=== PATIENT | male | born 1950 | race Caucasian/White ===

== ENCOUNTER 2017-07-21 08:04 | Day surgery (SDC) | payer MEDICARE ==
[2017-07-20 16:07] LABS: BASOPHILS % (AUTO) 0.3 % (0-1); EOSINOPHILS # (AUTO) 0.1 X10'3 (0-0.9); EOSINOPHILS % (AUTO) 1.4 % (0-6); LYMPHOCYTES # (AUTO) 1.6 X10'3 (1.1-4.8); LYMPHOCYTES % (AUTO) 32.8 % (21-51); MEAN CORPUSCULAR HEMOGLOBIN 32.9 PG (27.0-31.0); MEAN CORPUSCULAR HGB CONC 33.7 % (33.0-36.5); MEAN CORPUSCULAR VOLUME 97.6 FL (78-98); MEAN PLATELET VOLUME 6.6 FL (7.4-10.4); MONOCYTES # (AUTO) 0.5 X10'3 (0-0.9); MONOCYTES % (AUTO) 9.6 % (2-12); NEUTROPHILS # (AUTO) 2.8 X10'3 (1.8-7.7); NEUTROPHILS % (AUTO) 55.9 % (42-75); PRE OP HEMOGLOBIN 13.1 g/dL (14.0-17.9); PRE OP PLATELET COUNT 188 X10'3 (140-440); RED CELL DISTRIBUTION WIDTH 15.8 % (11.5-14.5)
[2017-07-20 16:22] LABS: PRE OP PROTIME 20.9 SECONDS (9.0-12.0)
[2017-07-20 16:24] LABS: PRE OP INR 2.1 INR
[2017-07-20 16:31] LABS: ALBUMIN 3.8 G/DL (3.4-5.0); ALBUMIN/GLOBULIN RATIO 1.1 (1.1-1.5); ALKALINE PHOSPHATASE 28 IU/L (46-116); BLOOD UREA NITROGEN 22 MG/DL (7-18); BUN/CREATININE RATIO 12.4 (5.4-32.0); CALCIUM 8.7 MG/DL (8.5-10.1); CHLORIDE 108 MMOL/L (99-107); CREATININE 1.77 MG/DL (0.60-1.10); PRE OP ALT 37 U/L (30-65); PRE OP ANION GAP 6 (8-16); PRE OP AST 22 U/L (10-37); PRE OP BILIRUB, TOTAL 0.9 MG/DL (0.0-1.0); PRE OP GLUCOSE 97 MG/DL (70-104); PRE OP POTASSIUM 4.3 MMOL/L (3.4-5.1); PRE OP SODIUM 143 MMOL/L (135-145); TOTAL CARBON DIOXIDE 28.7 MMOL/L (24-32); TOTAL PROTEIN 7.3 G/DL (6.4-8.2); eGFR 38 ML/MIN
[~2017-07-21] VITALS: Ht 190.5 cm; Wt 136.0 kg
[~2017-07-21 08:04] MED LIST: ALB0.5UD NEB; ATOR40TA71 PO; BUPIVAcaine/PF 2.5 mg/ml (0.25%) 30ml vial ONE; CARV-49 PO; CEFAZOLIN IV ONE; DOCUMENT DATE & TIME OF BETA-BLOCKER PO ONE; DULO30CA51 PO; ERGO500014 PO; FERR325T28 PO; GABA-532 PO; LACT1CAP65 PO; MULT-269 PO; POTA-82 PO; PSYL1CAP3 PO; SODIUM CHLORIDE IV ONE; TIOT4MIS3 INH; WARF5TAB7 PO; ZOLP10TA5 PO; albuterol 2.5 MG/3 ML nebule NEB ONE; famotidine 20mg tablet PO ONE; ringers solution, lacted 1,000 ML IV SCH
[2017-07-21 08:45] VITALS: BP 144/76
[2017-07-21] MEDS ORDERED: LIDOcaine 0.5% (5mg/ml) 50ml vial ONE (10:31)
[2017-07-21] MEDS ORDERED: fentaNYL/PF 50MCG/1 ML 2ML syringe ONE (10:39)
[2017-07-21] MEDS ORDERED: midazolam 2 mg/2 ml injection ONE (10:39)
[2017-07-21] MEDS ORDERED: propofol inj 20 ML IV ONE (10:48)
[2017-07-21] MEDS ORDERED: ringers solution, lacted 1,000 ML IV SCH (11:00)
[2017-07-21] MEDS ORDERED: meperidine/PF 25mg/ml syringe IV PRN ×3 (11:00)
[2017-07-21] MEDS ORDERED: ondansetron/PF 4mg/2ml inj IV PRN (11:00)
[2017-07-21] MEDS ORDERED: proCHLORperazine 10 MG/2 ml inj IV PRN (11:00)
[2017-07-21 11:10] VITALS: BP_SYST 132; BP_SYST 144; BP_DIAS 70; BP_DIAS 76
[2017-07-21 11:20] VITALS: BP 131/71
[2017-07-21 11:30] VITALS: BP 140/73
[2017-07-21 11:40] VITALS: BP 137/71
[2017-07-21 11:50] VITALS: BP 139/74
== END 2017-07-21 11:50 | disposition home or self-care (01) ==
LOC: PAS 08:04
PROVIDERS: ATTEND Orthopaedic Surgery Hand Surgery
DX: G56.01 Carpal tunnel syndrome, right upper limb (principal); M17.11 Unilateral primary osteoarthritis, right knee; I13.0 Hypertensive heart and chronic kidney disease with heart failure and stage 1 through stage 4 chronic kidney disease, or unspecified chronic kidney disease; I12.9 Hypertensive chronic kidney disease with stage 1 through stage 4 chronic kidney disease, or unspecified chronic kidney disease; I50.22 Chronic systolic (congestive) heart failure; G47.33 Obstructive sleep apnea (adult) (pediatric); I48.2 Chronic atrial fibrillation; E66.9 Obesity, unspecified; J44.9 Chronic obstructive pulmonary disease, unspecified; F32.9 Major depressive disorder, single episode, unspecified; Z68.36 Body mass index [BMI] 36.0-36.9, adult; Z90.49 Acquired absence of other specified parts of digestive tract; Z79.01 Long term (current) use of anticoagulants; Z85.038 Personal history of other malignant neoplasm of large intestine; Z79.899 Other long term (current) drug therapy; Z98.890 Other specified postprocedural states; Z86.73 Personal history of transient ischemic attack (TIA), and cerebral infarction without residual deficits; Z87.891 Personal history of nicotine dependence; Z72.89 Other problems related to lifestyle
CPT/HCPCS: 29848; 36415; 71046; 80053; 85025; 85610; 85730; A6449; J0690; J2001; J2250; J2704; J3010; J3490; J7120; A7000

== ENCOUNTER → 2018-10-26 | Emergency (ER) | payer MEDICARE ==
[~2018-10-26] VITALS: Ht 190.5 cm; Wt 133.0 kg
[~2018-10-26] MED LIST changes: -BUPIVAcaine/PF 2.5 mg/ml (0.25%) 30ml vial ONE; -CEFAZOLIN IV ONE; +CEPH500C5 PO; -DOCUMENT DATE & TIME OF BETA-BLOCKER PO ONE; +HYDR-3965 PO; +HYDROcodone/acetaminophen 5mg/325mg tablet PO ONE; -PSYL1CAP3 PO; -SODIUM CHLORIDE IV ONE; +TETanus/Pertussis (Acell)/Diphther VAC/PF (Tdap-Adult) 0.5ml syringe IM ONE; +WARF-55 PO; -WARF5TAB7 PO; -albuterol 2.5 MG/3 ML nebule NEB ONE; -famotidine 20mg tablet PO ONE; +ketorolac trometh inj. 60 MG/2 ML VIAL IM ONE; +neomy sulf/bacitrac zn/polymixin b oint 14.2 gm tube TP ONE; -ringers solution, lacted 1,000 ML IV SCH
[2018-10-26 11:56] VITALS: BP 122/80
== END | disposition home or self-care (01) ==
LOC: ER 11:46
DX: T23.251A Burn of second degree of right palm, initial encounter (principal); I48.91 Unspecified atrial fibrillation; I11.0 Hypertensive heart disease with heart failure; I50.9 Heart failure, unspecified; Z86.73 Personal history of transient ischemic attack (TIA), and cerebral infarction without residual deficits; Z85.038 Personal history of other malignant neoplasm of large intestine; Z98.890 Other specified postprocedural states; Z79.899 Other long term (current) drug therapy; Z79.01 Long term (current) use of anticoagulants; X15.0XXA Contact with hot stove (kitchen), initial encounter; Y93.89 Activity, other specified; Y92.098 Other place in other non-institutional residence as the place of occurrence of the external cause; Y99.9 Unspecified external cause status
CPT/HCPCS: 16020; 90471; 90715; 96372; 99284; J1885

== ENCOUNTER 2018-12-12 04:38 | Inpatient (IN) | payer MEDICARE ==
[~2018-12-12] VITALS: Ht 185.4 cm; Wt 146.1 kg
[~2018-12-12 04:38] MED LIST changes: -ALB0.5UD NEB; +ALBU18HF2 IH; +ASPI-1071 PO; +BUDE180A INH; +CEFD300C3 PO; -CEPH500C5 PO; +COU5T PO; +FURO-150 PO; -HYDR-3965 PO; -HYDROcodone/acetaminophen 5mg/325mg tablet PO ONE; -TETanus/Pertussis (Acell)/Diphther VAC/PF (Tdap-Adult) 0.5ml syringe IM ONE; -WARF-55 PO; -ketorolac trometh inj. 60 MG/2 ML VIAL IM ONE; -neomy sulf/bacitrac zn/polymixin b oint 14.2 gm tube TP ONE
[2018-12-12 05:12] LABS: BASOPHILS # (AUTO) 0.1 X10'3 (0-0.2); BASOPHILS % (AUTO) 0.9 % (0-1); EOSINOPHILS # (AUTO) 0.2 X10'3 (0-0.9); HEMATOCRIT 38.7 % (42.0-52.0); HEMOGLOBIN 12.5 g/dl (14.0-17.9); LYMPHOCYTES # (AUTO) 0.7 X10'3 (1.1-4.8); LYMPHOCYTES % (AUTO) 10.1 % (21-51); MEAN CORPUSCULAR HEMOGLOBIN 29.5 PG (27.0-31.0); MEAN CORPUSCULAR HGB CONC 32.2 g/dL (33.0-36.5); MEAN CORPUSCULAR VOLUME 91.5 FL (78-98); MEAN PLATELET VOLUME 8.5 FL (7.4-10.4); MONOCYTES # (AUTO) 0.5 X10'3 (0-0.9); MONOCYTES % (AUTO) 7.4 % (2-12); NEUTROPHILS # (AUTO) 5.7 X10'3 (1.8-7.7); NEUTROPHILS % (AUTO) 78.6 % (42-75); PLATELET COUNT 186 X10'3 (140-440); RED BLOOD COUNT 4.23 X10'6 (4.70-6.10); RED CELL DISTRIBUTION WIDTH 17.5 % (11.5-14.5); WHITE BLOOD COUNT 7.3 X10'3 (4.5-11.0)
[2018-12-12 05:35] LABS: ALANINE AMINOTRANSFERASE 103 U/L (12-78); ALBUMIN 3.1 G/DL (3.4-5.0); ALBUMIN/GLOBULIN RATIO 0.8 (1.1-1.5); ALKALINE PHOSPHATASE 91 IU/L (46-116); ANION GAP 9 (8-16); ASPARTATE AMINO TRANSFERASE 77 U/L (10-37); BLOOD UREA NITROGEN 36 MG/DL (7-18); BUN/CREATININE RATIO 17.7 (5.4-32.0); CALCIUM 8.3 MG/DL (8.5-10.1); CHLORIDE 103 MMOL/L (99-107); CREATININE 2.03 MG/DL (0.60-1.10); GLUCOSE 113 MG/DL (70-104); POTASSIUM 4.3 MMOL/L (3.5-5.1); SODIUM 137 MMOL/L (135-145); TOTAL CARBON DIOXIDE 24.6 MMOL/L (24-32); TOTAL PROTEIN 6.9 G/DL (6.4-8.2); eGFR 33 ML/MIN
--- NOTE | 2018-12-12 05:36 | NUR ---
Patient sleeping comfortably with nasal cannula attatched to forehead. SPo2 re-attached to finger and nasal cannula placed back in nose.
[2018-12-12 05:41] LABS: MAGNESIUM 2.1 MG/DL (1.5-2.4)
[2018-12-12] MEDS ORDERED: ondansetron/PF 4mg/2ml inj IV PRN (08:05)
[2018-12-12] MEDS ORDERED: potassium Cl 40MEQ/NS 500ml 500 ML IV PRN (08:05)
[2018-12-12] MEDS ORDERED: potassium CL 10mEq/100ml bag 100 ML IV PRN (08:05)
[2018-12-12] MEDS ORDERED: mag hydrox/Alum hydrox/simeth 30ml oral suspension PO PRN (08:05)
[2018-12-12] MEDS ORDERED: magnesium Cl slow-release 64mg tablet PO PRN (08:05)
[2018-12-12] MEDS ORDERED: potassium Cl 20 mEq SR tablet PO PRN ×2 (08:05)
[2018-12-12] MEDS ORDERED: magnesium 4gm in 100ml NS 100 ML IV PRN (08:05)
[2018-12-12] MEDS ORDERED: magnesium 2GM in 50ml NS 50 ML IV PRN (08:05)
[2018-12-12] MEDS ORDERED: magnesium hydroxide 30ml (MOM) UD suspension PO PRN (08:05)
[2018-12-12] MEDS ORDERED: acetaminophen 325mg tablet PO PRN ×2 (08:05)
[2018-12-12] MEDS: cefpodoxime proxetil 100mg tablet PO SCH ×2 (09:55→17:34)
[2018-12-12 10:15] VITALS: BP 127/47
[2018-12-12 11:01] VITALS: BP 118/60
--- NOTE | 2018-12-12 12:00 | NUR ---
Paged Dr Hopkins to confirm if he wants this patient to have fluids running despite elevated pbnp.
[2018-12-12 13:45] LABS: CHOL/HDL RATIO 3.4 (0.00-4.99); CHOLESTEROL 78 MG/DL (0-200); HDL CHOLESTEROL 23 MG/DL (35-60); LDL CHOLESTEROL 47 MG/DL (50-100); TRIGLYCERIDES 81 MG/DL (20-135)
[2018-12-12 15:00] VITALS: BP 134/83
--- NOTE | 2018-12-12 15:00 | NUR ---
Paged Sandeep again to confirm if he wants fluids running.
--- NOTE | 2018-12-12 17:15 | NUR ---
Confirmed with Dr Castorena that he does want fluids to continue at rate of 80/hr.
[2018-12-12] MEDS: normal saline 1000ml 1,000 ML IV SCH ×2 (17:30→20:31)
[2018-12-12 18:00] VITALS: BP 133/77
--- NOTE | 2018-12-12 18:00 | NUR ---
Patient in room MED 310. I have received report from JACQUE Navarrete and had the opportunity to ask questions and assume patient care.
--- NOTE | 2018-12-12 18:52 | NUR ---
Problems reprioritized. Patient report given, questions answered & plan of care reviewed with Miri SANTILLAN.
[2018-12-12] MEDS: HYDROcodone/acetaminophen 5mg/325mg tablet PO PRN (19:32)
[2018-12-12] MEDS: carvedilol 6.25mg tablet PO SCH (19:34)
[2018-12-12] MEDS: lactobacillus rhamnosus 10,000 MMU CELLS/CAPSULE PO SCH (19:34)
[2018-12-12 20:00] LABS: ABG BASE EXCESS 0.4 mmol/L (-2.0-3.0); ABG HCO3 24.7 mmol/L (22.0-26.0); ABG PCO2 (T) 37.5 mmHg (35.0-48.0); ABG PH (T) 7.433 (7.350-7.450); ABG PO2 (T) 67.8 mmHg (83-108); FMetHb 0.1 % (0.3-1.12); PATIENT TEMPERATURE 36.3
[2018-12-12] MEDS ORDERED: gabapentin 300mg capsule PO SCH (20:00)
[2018-12-12] MEDS: budesonide 0.5mg/2ml UD nebule IH SCH (20:06)
[2018-12-12] MEDS ORDERED: non-formulary drug (Zolpidem Tartrate* (Ambien*) 1 TABLET) PO SCH (21:00)
[2018-12-12] MEDS: atorvastatin 20mg tablet PO SCH (21:02)
[2018-12-12] MEDS: temazepam 15mg capsule PO PRN (21:02)
[2018-12-12] MEDS: warfarin 5mg tablet PO SCH (21:03)
[2018-12-12 22:00] VITALS: BP 122/99
[2018-12-13] MEDS: normal saline 1000ml 1,000 ML IV SCH ×2 (00:30→09:01)
[2018-12-13] MEDS: HYDROcodone/acetaminophen 5mg/325mg tablet PO PRN ×3 (01:56→15:20)
[2018-12-13 02:00] VITALS: BP 118/61
[2018-12-13 05:27] LABS: HEMATOCRIT 38.9 % (42.0-52.0); HEMOGLOBIN 12.7 g/dl (14.0-17.9); MEAN CORPUSCULAR HGB CONC 32.6 g/dL (33.0-36.5); MEAN PLATELET VOLUME 8.5 FL (7.4-10.4); PLATELET COUNT 168 X10'3 (140-440); RED BLOOD COUNT 4.22 X10'6 (4.70-6.10); RED CELL DISTRIBUTION WIDTH 17.8 % (11.5-14.5); WHITE BLOOD COUNT 6.4 X10'3 (4.5-11.0)
[2018-12-13 05:49] LABS: ANION GAP 4 (8-16); BLOOD UREA NITROGEN 25 MG/DL (7-18); BUN/CREATININE RATIO 14.9 (5.4-32.0); CALCIUM 8.7 MG/DL (8.5-10.1); CHLORIDE 103 MMOL/L (99-107); CREATININE 1.68 MG/DL (0.60-1.10); GLUCOSE 99 MG/DL (70-104); MAGNESIUM 2.2 MG/DL (1.5-2.4); PHOSPHORUS 3.5 MG/DL (2.3-4.5); POTASSIUM 4.4 MMOL/L (3.5-5.1); SODIUM 138 MMOL/L (135-145); TOTAL CARBON DIOXIDE 30.6 MMOL/L (24-32); eGFR 41 ML/MIN
[2018-12-13 06:00] VITALS: BP 135/92
--- NOTE | 2018-12-13 06:10 | NUR ---
Patient in room MED 310. I have received report from JACQUE MORRISON, and had the opportunity to ask questions and assume patient care.
--- NOTE | 2018-12-13 06:27 | NUR ---
Problems reprioritized. Patient report given, questions answered & plan of care reviewed with JACQUE Burnette.
[2018-12-13] MEDS ORDERED: duloxetine 30mg CAPSULE.DR PO SCH (08:00)
[2018-12-13] MEDS: K and/or MAG REPLACEMENT MC SCH (08:00)
[2018-12-13] MEDS: potassium chloride 10mEq ER tablet PO SCH (08:00)
[2018-12-13] MEDS: STIOLTO RESPIMAT PO SCH (08:00)
[2018-12-13] MEDS: budesonide 0.5mg/2ml UD nebule IH SCH ×2 (08:15→19:50)
[2018-12-13] MEDS: gabapentin 300mg capsule PO SCH (08:39)
[2018-12-13] MEDS: cefpodoxime proxetil 100mg tablet PO SCH ×2 (08:39→17:37)
[2018-12-13] MEDS: duloxetine 20mg capsule.DR PO SCH (08:40)
[2018-12-13] MEDS: aspirin 81mg tablet.DR PO SCH (08:40)
[2018-12-13] MEDS: lactobacillus rhamnosus 10,000 MMU CELLS/CAPSULE PO SCH ×2 (08:40→21:21)
[2018-12-13] MEDS: carvedilol 6.25mg tablet PO SCH ×2 (08:40→21:21)
[2018-12-13 10:56] VITALS: BP 117/70
--- NOTE | 2018-12-13 11:00 | NUR ---
PATIENT AMBULATED ON ROOM AIR MAINTAINED SPO2 >90% FOR THE ENTIRE WALK. PATIENT DENIES SHORTNESS OF BREATH, NO SYMPTOMS NOTED. TOLERATED WELL.
[2018-12-13 11:36] LABS: D-DIMER 1.68 MG/L FEU (0-0.50)
--- NOTE | 2018-12-13 13:00 | NUR ---
PATIENT SAYS HE HAS NO CPAP AT HOME PAGED DR. BENNETT- "RE; CYNTHIA BUCKNER IN 310. PATIENT SAYS HE DOES NOT HAVE CPAP AT HOME. RADIATION PROTECTION ENGINEER WANTS TO KNOW IF YOU WANT TO REFER HIM FOR SLEEP STUDY AT DISCHARGE? THANK YOU, JG BOBBY [phone]"
[2018-12-13 15:00] VITALS: BP 112/73
[2018-12-13 18:00] VITALS: BP 142/78
--- NOTE | 2018-12-13 18:00 | NUR ---
Patient in room MED 310. I have received report from JACQUE Burnette and had the opportunity to ask questions and assume patient care.
[2018-12-13] MEDS: temazepam 15mg capsule PO PRN (21:22)
[2018-12-13] MEDS: warfarin 5mg tablet PO SCH (21:22)
[2018-12-13] MEDS: atorvastatin 20mg tablet PO SCH (21:22)
[2018-12-13 21:57] LABS: URINE AMPHETAMINE SCREEN NEGATIVE (Neg); URINE BARBITUATE SCREEN NEGATIVE (Neg); URINE BENZODIAZEPINES SCREEN NEGATIVE (Neg); URINE CANNABINOID SCREEN NEGATIVE (Neg); URINE COCAINE SCREEN NEGATIVE (Neg); URINE METHADONE SCREEN NEGATIVE (Neg); URINE OPIATE SCREEN POSITIVE (Neg); URINE PHENCYCLIDINE SCREEN NEGATIVE (Neg)
[2018-12-13 22:00] VITALS: BP 139/80
[2018-12-14] MEDS: temazepam 15mg capsule PO PRN (00:44)
[2018-12-14 02:00] VITALS: BP 110/59
[2018-12-14 04:46] LABS: HEMATOCRIT 39.5 % (42.0-52.0); HEMOGLOBIN 13.1 g/dl (14.0-17.9); MEAN CORPUSCULAR HEMOGLOBIN 30.3 PG (27.0-31.0); MEAN CORPUSCULAR HGB CONC 33.1 g/dL (33.0-36.5); MEAN CORPUSCULAR VOLUME 91.8 FL (78-98); MEAN PLATELET VOLUME 8.2 FL (7.4-10.4); PLATELET COUNT 170 X10'3 (140-440); RED BLOOD COUNT 4.31 X10'6 (4.70-6.10); RED CELL DISTRIBUTION WIDTH 17.5 % (11.5-14.5); WHITE BLOOD COUNT 7.3 X10'3 (4.5-11.0)
[2018-12-14 04:54] LABS: ALBUMIN 3.3 G/DL (3.4-5.0); ANION GAP 3 (8-16); BLOOD UREA NITROGEN 26 MG/DL (7-18); CALCIUM 9.3 MG/DL (8.5-10.1); CHLORIDE 101 MMOL/L (99-107); CREATININE 1.73 MG/DL (0.60-1.10); GLUCOSE 112 MG/DL (70-104); MAGNESIUM 2.2 MG/DL (1.5-2.4); PHOSPHORUS 3.3 MG/DL (2.3-4.5); POTASSIUM 4.7 MMOL/L (3.5-5.1); SODIUM 135 MMOL/L (135-145); TOTAL CARBON DIOXIDE 30.6 MMOL/L (24-32); eGFR 39 ML/MIN
[2018-12-14 06:00] VITALS: BP 112/64
--- NOTE | 2018-12-14 06:30 | NUR ---
Problems reprioritized. Patient report given, questions answered & plan of care reviewed with JACQUE Hernandez.
[2018-12-14] MEDS: budesonide 0.5mg/2ml UD nebule IH SCH (07:45)
[2018-12-14] MEDS: potassium chloride 10mEq ER tablet PO SCH (08:00)
[2018-12-14] MEDS: K and/or MAG REPLACEMENT MC SCH (08:00)
[2018-12-14] MEDS: STIOLTO RESPIMAT PO SCH (08:00)
[2018-12-14] MEDS: lactobacillus rhamnosus 10,000 MMU CELLS/CAPSULE PO SCH (08:03)
[2018-12-14] MEDS: cefpodoxime proxetil 100mg tablet PO SCH (08:03)
[2018-12-14] MEDS: aspirin 81mg tablet.DR PO SCH (08:03)
[2018-12-14] MEDS: gabapentin 300mg capsule PO SCH (08:04)
[2018-12-14] MEDS: duloxetine 20mg capsule.DR PO SCH (08:04)
[2018-12-14] MEDS: carvedilol 6.25mg tablet PO SCH (08:08)
--- NOTE | 2018-12-14 08:12 | NUR ---
pt to V/Q scan
--- NOTE | 2018-12-14 09:47 | NUR ---
PAGER ID: [phone] MESSAGE: [phone]: LUZ ELENA SEGURA scan (-). thank you nurse [phone]
[2018-12-14] MEDS: normal saline 1000ml 1,000 ML IV SCH (10:01)
[2018-12-14] MEDS ORDERED: GABA-532 PO (10:17)
[2018-12-14] MEDS ORDERED: DULO20CA17 PO (10:17)
[2018-12-14] MEDS ORDERED: FURO-150 PO (10:17)
--- NOTE | 2018-12-14 11:45 | NUR ---
discharge education provided; all questions answered. pt removed from cardiac monitoring and IV removed; cannula intact. pt wheeled down with all belongings.
== END 2018-12-14 11:45 | disposition home or self-care (01) | DRG 70 ==
LOC: ER 04:38 → MED 3N 09:26 → CMPBEDREQ 19:22
PROVIDERS: ADMIT Family Medicine; ATTEND Family Medicine
PROC: CB121ZZ Planar Nuclear Medicine Imaging of Lungs and Bronchi using Technetium 99m (Tc-99m) (ICD-10-PCS; principal; 2018-12-14)
DX: G93.41 Metabolic encephalopathy (principal); J96.91 Respiratory failure, unspecified with hypoxia; N17.9 Acute kidney failure, unspecified; I50.22 Chronic systolic (congestive) heart failure; I13.0 Hypertensive heart and chronic kidney disease with heart failure and stage 1 through stage 4 chronic kidney disease, or unspecified chronic kidney disease; I42.9 Cardiomyopathy, unspecified; Z68.41 Body mass index [BMI] 40.0-44.9, adult; J96.11 Chronic respiratory failure with hypoxia; N18.3 Chronic kidney disease, stage 3 (moderate); J44.9 Chronic obstructive pulmonary disease, unspecified; G47.33 Obstructive sleep apnea (adult) (pediatric); E66.9 Obesity, unspecified; F41.9 Anxiety disorder, unspecified; R74.8 Abnormal levels of other serum enzymes; I48.91 Unspecified atrial fibrillation; Z85.038 Personal history of other malignant neoplasm of large intestine; Z86.718 Personal history of other venous thrombosis and embolism; Z86.73 Personal history of transient ischemic attack (TIA), and cerebral infarction without residual deficits; Z87.01 Personal history of pneumonia (recurrent); Z95.0 Presence of cardiac pacemaker; Z95.810 Presence of automatic (implantable) cardiac defibrillator
CPT/HCPCS: 36415; 36600; 70450; 71045; 71250; 78582; 80048; 80053; 80061; 80305; 82140; 82803; 83735; 83880; 84100; 84443; 84484; 85018; 85025; 85027; 85379; 85610; 87070; 93005; 93970; 94640; 94760; 99285; A9539; A9540; G0378; J7030; J7626

== ENCOUNTER 2019-03-04 06:24 | Inpatient (IN) | payer MEDICARE ==
[2019-03-04] VITALS (12 sets, daily range): BP systolic 101–138; BP diastolic 44–83
[~2019-03-04] VITALS: Ht 190.5 cm; Wt 118.4 kg
[~2019-03-04 06:24] MED LIST changes: -CEFD300C3 PO; +DULO20CA18 PO; -DULO30CA51 PO; -LACT1CAP65 PO; -MULT-269 PO
[2019-03-04] MEDS ORDERED: normal saline 1000ML IV soln IVB ONE (06:45)
--- NOTE | 2019-03-04 07:12 | NUR ---
OT AT 2 LPM TO PATIENT, SATS AT 93 BEFORE O2- HOB UP, URINAL PRIVIDED
--- NOTE | 2019-03-04 07:39 | NUR ---
pt with increase work of breathing, o2 per n/c at 2lpm, encouraged pt to nose breathe as breathing via mouth-abdominal breathing noted
[2019-03-04 07:40] LABS: ALANINE AMINOTRANSFERASE 27 U/L (12-78); ALBUMIN 3.7 G/DL (3.4-5.0); ALBUMIN/GLOBULIN RATIO 0.8 (1.1-1.5); ALKALINE PHOSPHATASE 67 IU/L (46-116); ANION GAP 8 (8-16); ASPARTATE AMINO TRANSFERASE 32 U/L (10-37); BILIRUBIN,TOTAL 3.4 MG/DL (0.1-1.0); BLOOD UREA NITROGEN 35 MG/DL (7-18); BUN/CREATININE RATIO 13.8 (5.4-32.0); CALCIUM 9.4 MG/DL (8.5-10.1); CHLORIDE 106 MMOL/L (99-107); CREATININE 2.53 MG/DL (0.60-1.10); ETHANOL < 0.010 GM/DL (0.0-0.010); GLUCOSE 108 MG/DL (70-104); MAGNESIUM 1.8 MG/DL (1.5-2.4); SODIUM 136 MMOL/L (135-145); TOTAL CARBON DIOXIDE 21.6 MMOL/L (24-32); TOTAL PROTEIN 8.2 G/DL (6.4-8.2); eGFR 25 ML/MIN
[2019-03-04] MEDS ORDERED: aspirin 325mg tablet PO ONE (07:40)
[2019-03-04] MEDS ORDERED: calcium gluconate inj. 1 GM in normal saline 100ml IV soln 100 ML IV ONE (07:40)
[2019-03-04 07:43] LABS: POTASSIUM 9.3 MMOL/L (3.5-5.1)
[2019-03-04] MEDS ORDERED: albuterol 2.5 MG/3 ML nebule CONTNEB PRN (07:45)
[2019-03-04] MEDS ORDERED: insulin regular, human 10 units/0.1 ml syringe IV ONE (07:45)
[2019-03-04] MEDS ORDERED: sodium bicarbonate (0.9mEq/ml) 44.6 mEq/50ml syringe IV ONE (07:45)
[2019-03-04] MEDS ORDERED: sodium polystyrene sulfonate 15gm/60ml oral suspension PO ONE ×3 (07:45→20:15)
[2019-03-04] MEDS ORDERED: furosemide 40mg/4ml inj IV ONE (07:45)
[2019-03-04] MEDS ORDERED: dextrose 50%-water 50ml dispensing syringe IV ONE ×5 (07:45→23:35)
[2019-03-04 08:07] LABS: BASOPHILS # (AUTO) 0.1 X10'3 (0-0.2); BASOPHILS % (AUTO) 1.1 % (0-1); EOSINOPHILS % (AUTO) 0.2 % (0-6); HEMATOCRIT 45.8 % (42.0-52.0); HEMOGLOBIN 14.7 g/dl (14.0-17.9); LYMPHOCYTES # (AUTO) 2.3 X10'3 (1.1-4.8); LYMPHOCYTES % (AUTO) 23.8 % (21-51); MEAN CORPUSCULAR HEMOGLOBIN 31.4 PG (27.0-31.0); MEAN CORPUSCULAR VOLUME 98.3 FL (78-98); MEAN PLATELET VOLUME 7.9 FL (7.4-10.4); MONOCYTES # (AUTO) 0.7 X10'3 (0-0.9); MONOCYTES % (AUTO) 7.2 % (2-12); NEUTROPHILS # (AUTO) 6.6 X10'3 (1.8-7.7); NEUTROPHILS % (AUTO) 67.7 % (42-75); PLATELET COUNT 192 X10'3 (140-440); RED BLOOD COUNT 4.66 X10'6 (4.70-6.10); RED CELL DISTRIBUTION WIDTH 21.9 % (11.5-14.5); WHITE BLOOD COUNT 9.7 X10'3 (4.5-11.0)
[2019-03-04 08:15] LABS: ABG BASE EXCESS -14.2 mmol/L (-2.0-3.0); ABG HCO3 15.5 mmol/L (22.0-26.0); ABG OXYGEN SATURATION 93.6 % (95-98); ABG PCO2 (T) 50.7 mmHg (35.0-45.0); ABG PH (T) 7.103 (7.350-7.450); ABG PO2 (T) 92.6 mmHg (83-108); FCOHb 1.5 % (0.5-1.5); FLOW 2 L/min; FMetHb 0.1 % (0.3-1.12); FO2Hb 92.1 % (94-100); TOTAL HEMOGLOBIN 15.1 G/dl (14.0-17.9)
--- NOTE | 2019-03-04 08:22 | NUR ---
AT 7:48 [facility] CALLED WITH CRITICAL OF POTASSIUM 9.1 DR. RIVERA NOTIFYED, 1 GM CALCIUM GLUCONATE ORDERED, CALLED RX STATES 10 MINUTES, CRASHCART PULLED TO ROOM, CALCIUM GLUCONATE GIVE FROM CART. GLUCOSE, INSULIN, ASA AND KAYEXALATE GIVEN STAT, RT IN ROOM TX BEGAN, PT NOT WANTING TREATMENT, DYSPNEA, LABORED BREATHING.
[2019-03-04] MEDS ORDERED: DULO-31 PO (08:59)
[2019-03-04] MEDS ORDERED: GABA-532 PO (08:59)
--- NOTE | 2019-03-04 09:00 | NUR ---
HOME MEDICATIONS UPDATED, PERSONAL BELONGINGS LISTED, DR. RIVERA AT BEDSIDE SPEAKING WITH PATIENT CONCERNING PLAN OF CARE
--- NOTE | 2019-03-04 09:18 | NUR ---
PT REFUSING B-PAP. DR RIVERA AWARE
[2019-03-04 09:21] LABS: ANISOCYTOSIS 3+; PLATELET ESTIMATE NORMAL
[2019-03-04 09:22] LABS: POLYCHROMASIA FEW
[2019-03-04 09:23] LABS: POIKILOCYTOSIS FEW
[2019-03-04] MEDS ORDERED: morphine 4 MG/ML inj SYRINge IV PRN (10:10)
[2019-03-04] MEDS ORDERED: acetaminophen 325mg tablet PO PRN ×2 (10:10)
[2019-03-04] MEDS ORDERED: morphine 2 MG/ML inj. syringe IV PRN (10:10)
[2019-03-04] MEDS ORDERED: albuterol 2.5 MG/3 ML nebule NEB PRN (10:10)
[2019-03-04] MEDS ORDERED: ergocalciferol (Vitamin D) 50,000 unit capsule PO SCH (10:10)
[2019-03-04] MEDS ORDERED: ondansetron/PF 4mg/2ml inj IV PRN (10:10)
[2019-03-04] MEDS: normal saline 1000ml 1,000 ML IV SCH ×2 (10:50→23:27)
[2019-03-04 11:06] LABS: ISTAT ANION GAP 6 (8-12); ISTAT BUN 35 mg/dL (6-19); ISTAT CL 108 mmol/L (99-107); ISTAT CREATININE 2.4 mg/dL (0.8-1.3); ISTAT GLUCOSE 106 mg/dL (70-104); ISTAT HGB 14.6 g/dl (14.0-18.0); ISTAT Hct 43 %PCV (42-52); ISTAT IONIZED CALCIUM 1.23 mmol/L (1.03-1.32); ISTAT NA 135 mmol/L (135-145); ISTAT TOTAL CO2 21 mmol/L (24-32); ISTAT eGFR 27 ML/MIN; POC BUN/CREATININE RATIO 14.6 (5.4-32.0)
[2019-03-04 11:12] LABS: ISTAT K > 8.5 mmol/L (3.5-5.1)
[2019-03-04 11:17] LABS: ALANINE AMINOTRANSFERASE 26 U/L (12-78); ALBUMIN 3.1 G/DL (3.4-5.0); ALBUMIN/GLOBULIN RATIO 0.8 (1.1-1.5); ALKALINE PHOSPHATASE 57 IU/L (46-116); ANION GAP 7 (8-16); ASPARTATE AMINO TRANSFERASE 29 U/L (10-37); BILIRUBIN,TOTAL 3.1 MG/DL (0.1-1.0); BLOOD UREA NITROGEN 33 MG/DL (7-18); BUN/CREATININE RATIO 14.5 (5.4-32.0); CALCIUM 8.8 MG/DL (8.5-10.1); CHLORIDE 109 MMOL/L (99-107); CREATININE 2.28 MG/DL (0.60-1.10); GLUCOSE 102 MG/DL (70-104); SODIUM 136 MMOL/L (135-145); TOTAL CARBON DIOXIDE 20.5 MMOL/L (24-32); TOTAL PROTEIN 6.9 G/DL (6.4-8.2); eGFR 29 ML/MIN
[2019-03-04 11:18] LABS: POTASSIUM 8.5 MMOL/L (3.5-5.1)
--- NOTE | 2019-03-04 11:24 | NUR ---
DR JACKSON NOTIFIED OF ELEVATED K+ 8.5 AND INR 5.3
[2019-03-04] MEDS: budesonide 0.5mg/2ml UD nebule IH SCH ×2 (11:41→20:04)
[2019-03-04] MEDS ORDERED: HYDR-3965 PO (11:53)
[2019-03-04] MEDS ORDERED: calcium chloride 100 MG/1 ML inj IV ONE ×3 (11:55→14:00)
[2019-03-04] MEDS ORDERED: LORazepam 2 mg/ml vial IV PRN (12:00)
--- NOTE | 2019-03-04 12:10 | NUR ---
ekg changes noted on on monitor,pt work of breating increase, diaphoretic, called for ekg, showed to dr. best/kayla, calcium [address] best orderat [address] push spoke to dr garza who ordered bipap, patient consent to bipap, ativan ordered and given, iv fluids decreased to keep open at 15 cc min. vitals, 142/48, pulse at 120, 99 % on bipap at this time.
[2019-03-04 12:15] LABS: CLARITY,URINE CLEAR (Clear); COLOR,URINE YELLOW (Yellow); GLUCOSE, URINE NEGATIVE (Neg); KETONES,URINE NEGATIVE (Neg); LEUKOCYTE ESTERASE ,URINE NEGATIVE (Neg); NITRITES, URINE NEGATIVE (Neg); OCCULT BLOOD,URINE NEGATIVE (Neg); PROTEIN,URINE NEGATIVE (Neg); UROBILINOGEN,URINE 0.2 E.U/dL (0.2-1.0)
[2019-03-04 12:16] LABS: UA COLLECTION TYPE CLN CATCH MIDSTREAM
[2019-03-04 12:17] LABS: TOTAL PROTEIN,URINE RANDOM 26.5 MG/DL
[2019-03-04 12:19] LABS: URINE AMPHETAMINE SCREEN NEGATIVE (Neg); URINE BARBITUATE SCREEN NEGATIVE (Neg); URINE BENZODIAZEPINES SCREEN NEGATIVE (Neg); URINE CANNABINOID SCREEN NEGATIVE (Neg); URINE COCAINE SCREEN NEGATIVE (Neg); URINE METHADONE SCREEN NEGATIVE (Neg); URINE OPIATE SCREEN NEGATIVE (Neg); URINE PHENCYCLIDINE SCREEN NEGATIVE (Neg)
--- NOTE | 2019-03-04 13:00 | NUR ---
[place] catheter place at right groin per Dr Almeida----dialysis nurse here to do hemodialysis B/P 126/70 sats 94%
[2019-03-04 13:24] LABS: UA EOSINOPHILS NO EOS /HPF
[2019-03-04] MEDS ORDERED: heparin 1,000unit/ml 10ml vial 10 ML IV ONE (14:09)
[2019-03-04] MEDS ORDERED: normal saline 1000ml 250 ML IV PRN (14:09)
[2019-03-04] MEDS ORDERED: heparin 1,000 units/ml 10ml inj HE ONE ×2 (14:15)
[2019-03-04 14:36] LABS: ABG OXYGEN SATURATION 95.6 % (95-98); ABG PCO2 (T) 38.3 mmHg (35.0-45.0); ABG PH (T) 7.357 (7.350-7.450); ABG PO2 (T) 83.7 mmHg (83-108); ALLEN'S TEST Positive; FCOHb 1.1 % (0.5-1.5); FMetHb 0.1 % (0.3-1.12); FO2Hb 94.5 % (94-100); RESPIRATORY RATE 16 b/min; TIDAL VOLUME 1100 mL; TOTAL HEMOGLOBIN 14.5 G/dl (14.0-17.9)
[2019-03-04] MEDS ORDERED: METO5TAB7 PO (16:50)
[2019-03-04] MEDS ORDERED: ERGO500056 PO (16:51)
--- NOTE | 2019-03-04 18:30 | NUR ---
Patient in room ICU 2046. I have received report from JACQUE Davenport and had the opportunity to ask questions and assume patient care.
--- NOTE | 2019-03-04 19:50 | NUR ---
Amarjit Smallwood IGNITER ASSEMBLER made aware of patient's heart rate dropping to high 30's. Repeat CMP in process. No order at this time. Will continue to monitor patient. Will notify IGNITER ASSEMBLER if he become symptomatic/with abnormal lab values.
[2019-03-04 20:02] LABS: ALANINE AMINOTRANSFERASE 30 U/L (12-78); ALBUMIN 3.5 G/DL (3.4-5.0); ALKALINE PHOSPHATASE 63 IU/L (46-116); ANION GAP 9 (8-16); ASPARTATE AMINO TRANSFERASE 39 U/L (10-37); BILIRUBIN,TOTAL 3.8 MG/DL (0.1-1.0); BLOOD UREA NITROGEN 22 MG/DL (7-18); BUN/CREATININE RATIO 12.3 (5.4-32.0); CALCIUM 9.4 MG/DL (8.5-10.1); CHLORIDE 106 MMOL/L (99-107); CREATININE 1.79 MG/DL (0.60-1.10); GLUCOSE 85 MG/DL (70-104); SODIUM 138 MMOL/L (135-145); TOTAL CARBON DIOXIDE 22.7 MMOL/L (24-32); eGFR 38 ML/MIN
[2019-03-04 20:05] LABS: ALBUMIN/GLOBULIN RATIO 0.9 (1.1-1.5); TOTAL PROTEIN 7.5 G/DL (6.4-8.2)
[2019-03-04 20:07] LABS: POTASSIUM 6.5 MMOL/L (3.5-5.1)
[2019-03-04] MEDS ORDERED: albuterol 2.5 MG/3 ML nebule NEB ONE ×2 (20:15→23:35)
[2019-03-04] MEDS ORDERED: sodium bicarbonate (8.4%) 1 mEq/ml syringe IV ONE (20:15)
[2019-03-04] MEDS ORDERED: insulin regular, human 10 units/0.1 ml syringe SQ ONE ×2 (20:15→23:35)
[2019-03-04] MEDS: sennosides/docusate sodium tablet PO SCH (20:41)
[2019-03-04] MEDS: gabapentin 300mg capsule PO SCH (20:42)
[2019-03-04] MEDS: atorvastatin 20mg tablet PO SCH (20:42)
[2019-03-04] MEDS: docusate sod 100mg capsule PO SCH (20:42)
[2019-03-04] MEDS: heparin, porcine 5000 units/ml vial SQ SCH (20:43)
[2019-03-04] MEDS: zolpidem 5mg tablet PO SCH (21:00)
[2019-03-04] MEDS ORDERED: warfarin 5mg tablet PO SCH (21:00)
--- NOTE | 2019-03-04 23:00 | NUR ---
Discontinued Left Antecubital 18G field start PIV because it was leaking. Tip intact. Pt tolerated well.
[2019-03-04 23:27] LABS: ALANINE AMINOTRANSFERASE 32 U/L (12-78); ALBUMIN 3.1 G/DL (3.4-5.0); ALBUMIN/GLOBULIN RATIO 0.8 (1.1-1.5); ALKALINE PHOSPHATASE 55 IU/L (46-116); ANION GAP 7 (8-16); ASPARTATE AMINO TRANSFERASE 31 U/L (10-37); BLOOD UREA NITROGEN 22 MG/DL (7-18); BUN/CREATININE RATIO 11.5 (5.4-32.0); CALCIUM 8.8 MG/DL (8.5-10.1); CHLORIDE 104 MMOL/L (99-107); CREATININE 1.91 MG/DL (0.60-1.10); GLUCOSE 104 MG/DL (70-104); SODIUM 137 MMOL/L (135-145); TOTAL CARBON DIOXIDE 25.8 MMOL/L (24-32); TOTAL PROTEIN 6.9 G/DL (6.4-8.2); eGFR 35 ML/MIN
[2019-03-04 23:29] LABS: POTASSIUM 6.3 MMOL/L (3.5-5.1)
--- NOTE | 2019-03-04 23:35 | NUR ---
Amarjit Smallwood REAL TIME ANALYST notified of K at 6.5 and that patient continues to nickie down to 30's with a lot of ectopy. Orders received and entered. Will give medications and recheck K in 2 hours per order. Addendum: 03/05/19 at 0041 by Macrina Rodríguez RN This occurred at 2014 on 03/04/19.
--- NOTE | 2019-03-04 23:35 | NUR ---
K is now 6.3. Orders received for d50, 10 units of insulin, and 10mg of albuterol. Will give and continue to monitor.
[2019-03-05] VITALS (14 sets, daily range): BP systolic 96–120; BP diastolic 45–61
[2019-03-05 03:30] LABS: BASOPHILS % (AUTO) 0.7 % (0-1); EOSINOPHILS # (AUTO) 0.1 X10'3 (0-0.9); EOSINOPHILS % (AUTO) 0.7 % (0-6); HEMATOCRIT 38.8 % (42.0-52.0); HEMOGLOBIN 12.7 g/dl (14.0-17.9); LYMPHOCYTES # (AUTO) 1.1 X10'3 (1.1-4.8); LYMPHOCYTES % (AUTO) 15.5 % (21-51); MEAN CORPUSCULAR HEMOGLOBIN 31.3 PG (27.0-31.0); MEAN CORPUSCULAR HGB CONC 32.8 g/dL (33.0-36.5); MEAN CORPUSCULAR VOLUME 95.5 FL (78-98); MEAN PLATELET VOLUME 7.8 FL (7.4-10.4); MONOCYTES # (AUTO) 0.6 X10'3 (0-0.9); MONOCYTES % (AUTO) 9.1 % (2-12); NEUTROPHILS # (AUTO) 5.2 X10'3 (1.8-7.7); PLATELET COUNT 160 X10'3 (140-440); RED BLOOD COUNT 4.06 X10'6 (4.70-6.10); RED CELL DISTRIBUTION WIDTH 21.3 % (11.5-14.5)
[2019-03-05 03:44] LABS: ALANINE AMINOTRANSFERASE 34 U/L (12-78); ALBUMIN 3.3 G/DL (3.4-5.0); ALBUMIN/GLOBULIN RATIO 0.9 (1.1-1.5); ALKALINE PHOSPHATASE 58 IU/L (46-116); ANION GAP 6 (8-16); ASPARTATE AMINO TRANSFERASE 42 U/L (10-37); BLOOD UREA NITROGEN 22 MG/DL (7-18); BUN/CREATININE RATIO 10.7 (5.4-32.0); CALCIUM 9.2 MG/DL (8.5-10.1); CHLORIDE 106 MMOL/L (99-107); CREATININE 2.05 MG/DL (0.60-1.10); GLUCOSE 75 MG/DL (70-104); MAGNESIUM 1.6 MG/DL (1.5-2.4); PHOSPHORUS 3.6 MG/DL (2.3-4.5); POTASSIUM 5.4 MMOL/L (3.5-5.1); SODIUM 139 MMOL/L (135-145); TOTAL CARBON DIOXIDE 26.6 MMOL/L (24-32); TOTAL PROTEIN 7.1 G/DL (6.4-8.2); eGFR 32 ML/MIN
[2019-03-05 04:14] LABS: ANISOCYTOSIS 3+; PLATELET ESTIMATE NORMAL
--- NOTE | 2019-03-05 06:02 | NUR ---
I have reviewed and agree with all medications administered and interventions performed by Orientjessica(JACQUE Schumacher).
--- NOTE | 2019-03-05 06:34 | NUR ---
Problems reprioritized. Patient report given, questions answered & plan of care reviewed with JACQUE Davenpotr.
[2019-03-05 07:21] LABS: ALANINE AMINOTRANSFERASE 34 U/L (12-78); ALBUMIN/GLOBULIN RATIO 0.8 (1.1-1.5); ALKALINE PHOSPHATASE 52 IU/L (46-116); ANION GAP 6 (8-16); ASPARTATE AMINO TRANSFERASE 46 U/L (10-37); BILIRUBIN,TOTAL 2.7 MG/DL (0.1-1.0); BLOOD UREA NITROGEN 22 MG/DL (7-18); BUN/CREATININE RATIO 10.5 (5.4-32.0); CALCIUM 8.9 MG/DL (8.5-10.1); CHLORIDE 106 MMOL/L (99-107); CREATININE 2.09 MG/DL (0.60-1.10); GLUCOSE 75 MG/DL (70-104); POTASSIUM 4.6 MMOL/L (3.5-5.1); SODIUM 140 MMOL/L (135-145); TOTAL CARBON DIOXIDE 28.5 MMOL/L (24-32); TOTAL PROTEIN 6.6 G/DL (6.4-8.2); eGFR 32 ML/MIN
[2019-03-05] MEDS: budesonide 0.5mg/2ml UD nebule IH SCH ×2 (07:30→19:32)
[2019-03-05] MEDS ORDERED: furosemide 20MG tablet PO SCH (08:00)
[2019-03-05] MEDS: docusate sod 100mg capsule PO SCH ×2 (08:00→20:00)
[2019-03-05] MEDS: duloxetine 30mg CAPSULE.DR PO SCH (08:01)
[2019-03-05] MEDS: aspirin 81mg tablet.DR PO SCH (08:01)
[2019-03-05] MEDS: gabapentin 300mg capsule PO SCH ×2 (08:02→20:36)
[2019-03-05] MEDS: heparin, porcine 5000 units/ml vial SQ SCH ×2 (08:08→20:38)
[2019-03-05] MEDS: HYDROcodone/acetaminophen 10/325mg tab PO PRN ×2 (08:55→21:39)
[2019-03-05] MEDS ORDERED: FURO-150 PO ×2 (11:31→11:32)
[2019-03-05] MEDS ORDERED: FURO20TA4 PO (11:34)
[2019-03-05 13:04] LABS: ALANINE AMINOTRANSFERASE 33 U/L (12-78); ALBUMIN/GLOBULIN RATIO 0.8 (1.1-1.5); ALKALINE PHOSPHATASE 51 IU/L (46-116); ANION GAP 11 (8-16); ASPARTATE AMINO TRANSFERASE 44 U/L (10-37); BILIRUBIN,TOTAL 2.5 MG/DL (0.1-1.0); BLOOD UREA NITROGEN 26 MG/DL (7-18); BUN/CREATININE RATIO 13.3 (5.4-32.0); CALCIUM 8.8 MG/DL (8.5-10.1); CHLORIDE 104 MMOL/L (99-107); CREATININE 1.96 MG/DL (0.60-1.10); GLUCOSE 96 MG/DL (70-104); POTASSIUM 4.1 MMOL/L (3.5-5.1); SODIUM 139 MMOL/L (135-145); TOTAL CARBON DIOXIDE 24.2 MMOL/L (24-32); TOTAL PROTEIN 6.7 G/DL (6.4-8.2); eGFR 34 ML/MIN
--- NOTE | 2019-03-05 13:55 | NUR ---
Pt. arrived to PCU at approx. 1300. VSS. Pt. given call light. Sophia at bedside. Bed extended placed on bed for pt's comfort as he is 75" tall.
[2019-03-05 15:40] LABS: ALANINE AMINOTRANSFERASE 34 U/L (12-78); ALBUMIN/GLOBULIN RATIO 0.8 (1.1-1.5); ALKALINE PHOSPHATASE 54 IU/L (46-116); ANION GAP 7 (8-16); ASPARTATE AMINO TRANSFERASE 42 U/L (10-37); BILIRUBIN,TOTAL 2.3 MG/DL (0.1-1.0); BLOOD UREA NITROGEN 23 MG/DL (7-18); CALCIUM 8.5 MG/DL (8.5-10.1); CHLORIDE 103 MMOL/L (99-107); CREATININE 2.09 MG/DL (0.60-1.10); GLUCOSE 171 MG/DL (70-104); POTASSIUM 3.9 MMOL/L (3.5-5.1); SODIUM 137 MMOL/L (135-145); TOTAL CARBON DIOXIDE 26.9 MMOL/L (24-32); TOTAL PROTEIN 6.6 G/DL (6.4-8.2); eGFR 32 ML/MIN
--- NOTE | 2019-03-05 18:51 | NUR ---
Patient in room PCU 3014g. I have received report from JACQUE Montaño and had the opportunity to ask questions and assume patient care. Patient awake for bedside report and sitting at side of bed. 20G in right AC and is saline locked. Stable at this time. Will continue to monitor closely.
[2019-03-05 19:50] LABS: ALANINE AMINOTRANSFERASE 37 U/L (12-78); ALBUMIN 3.3 G/DL (3.4-5.0); ALBUMIN/GLOBULIN RATIO 0.8 (1.1-1.5); ALKALINE PHOSPHATASE 59 IU/L (46-116); ANION GAP 12 (8-16); ASPARTATE AMINO TRANSFERASE 34 U/L (10-37); BILIRUBIN,TOTAL 2.4 MG/DL (0.1-1.0); BLOOD UREA NITROGEN 22 MG/DL (7-18); BUN/CREATININE RATIO 11.1 (5.4-32.0); CALCIUM 8.7 MG/DL (8.5-10.1); CHLORIDE 101 MMOL/L (99-107); CREATININE 1.98 MG/DL (0.60-1.10); GLUCOSE 129 MG/DL (70-104); POTASSIUM 3.9 MMOL/L (3.5-5.1); SODIUM 136 MMOL/L (135-145); TOTAL CARBON DIOXIDE 22.9 MMOL/L (24-32); TOTAL PROTEIN 7.4 G/DL (6.4-8.2); eGFR 34 ML/MIN
[2019-03-05] MEDS: atorvastatin 20mg tablet PO SCH (20:36)
[2019-03-05] MEDS: sennosides/docusate sodium tablet PO SCH (20:39)
[2019-03-05] MEDS: zolpidem 5mg tablet PO SCH (21:30)
[2019-03-05 23:35] LABS: ALANINE AMINOTRANSFERASE 36 U/L (12-78); ALBUMIN 3.2 G/DL (3.4-5.0); ALBUMIN/GLOBULIN RATIO 0.8 (1.1-1.5); ALKALINE PHOSPHATASE 62 IU/L (46-116); ANION GAP 9 (8-16); ASPARTATE AMINO TRANSFERASE 34 U/L (10-37); BILIRUBIN,TOTAL 2.2 MG/DL (0.1-1.0); BLOOD UREA NITROGEN 22 MG/DL (7-18); BUN/CREATININE RATIO 11.9 (5.4-32.0); CALCIUM 8.6 MG/DL (8.5-10.1); CHLORIDE 100 MMOL/L (99-107); CREATININE 1.85 MG/DL (0.60-1.10); GLUCOSE 115 MG/DL (70-104); SODIUM 134 MMOL/L (135-145); TOTAL PROTEIN 7.2 G/DL (6.4-8.2); eGFR 36 ML/MIN
[2019-03-06 03:00] VITALS: BP 129/63
--- NOTE | 2019-03-06 06:14 | NUR ---
Problems reprioritized. Patient report given, questions answered & plan of care reviewed with JACQUE Wynn and JACQUE Romero.
[2019-03-06 06:17] LABS: BASOPHILS # (AUTO) 0.1 X10'3 (0-0.2); BASOPHILS % (AUTO) 1.1 % (0-1); EOSINOPHILS # (AUTO) 0.1 X10'3 (0-0.9); EOSINOPHILS % (AUTO) 1.6 % (0-6); HEMATOCRIT 35.4 % (42.0-52.0); LYMPHOCYTES # (AUTO) 1.3 X10'3 (1.1-4.8); LYMPHOCYTES % (AUTO) 23.5 % (21-51); MEAN CORPUSCULAR HEMOGLOBIN 31.9 PG (27.0-31.0); MEAN CORPUSCULAR HGB CONC 33.8 g/dL (33.0-36.5); MEAN CORPUSCULAR VOLUME 94.4 FL (78-98); MEAN PLATELET VOLUME 7.5 FL (7.4-10.4); MONOCYTES # (AUTO) 0.5 X10'3 (0-0.9); MONOCYTES % (AUTO) 8.9 % (2-12); NEUTROPHILS # (AUTO) 3.6 X10'3 (1.8-7.7); NEUTROPHILS % (AUTO) 64.9 % (42-75); PLATELET COUNT 149 X10'3 (140-440); RED BLOOD COUNT 3.75 X10'6 (4.70-6.10); RED CELL DISTRIBUTION WIDTH 20.5 % (11.5-14.5); WHITE BLOOD COUNT 5.5 X10'3 (4.5-11.0)
[2019-03-06 06:25] LABS: ALANINE AMINOTRANSFERASE 30 U/L (12-78); ALBUMIN 3.2 G/DL (3.4-5.0); ALBUMIN/GLOBULIN RATIO 0.8 (1.1-1.5); ALKALINE PHOSPHATASE 58 IU/L (46-116); ANION GAP 8 (8-16); ASPARTATE AMINO TRANSFERASE 35 U/L (10-37); BILIRUBIN,TOTAL 2.2 MG/DL (0.1-1.0); BLOOD UREA NITROGEN 22 MG/DL (7-18); BUN/CREATININE RATIO 11.7 (5.4-32.0); CALCIUM 8.7 MG/DL (8.5-10.1); CHLORIDE 101 MMOL/L (99-107); CREATININE 1.88 MG/DL (0.60-1.10); GLUCOSE 98 MG/DL (70-104); MAGNESIUM 1.3 MG/DL (1.5-2.4); PHOSPHORUS 3.8 MG/DL (2.3-4.5); POTASSIUM 3.9 MMOL/L (3.5-5.1); SODIUM 135 MMOL/L (135-145); TOTAL CARBON DIOXIDE 26.1 MMOL/L (24-32); TOTAL PROTEIN 7.1 G/DL (6.4-8.2); eGFR 36 ML/MIN
--- NOTE | 2019-03-06 06:29 | NUR ---
Patient in room PCU 3017. I have received report from Ramone SANTILLAN and had the opportunity to ask questions and assume patient care.
[2019-03-06 06:56] LABS: ANISOCYTOSIS 3+; PLATELET ESTIMATE NORMAL
[2019-03-06 07:00] VITALS: BP 97/59
[2019-03-06] MEDS: aspirin 81mg tablet.DR PO SCH (07:23)
[2019-03-06] MEDS: duloxetine 30mg CAPSULE.DR PO SCH (07:24)
[2019-03-06] MEDS: gabapentin 300mg capsule PO SCH (07:24)
[2019-03-06] MEDS: heparin, porcine 5000 units/ml vial SQ SCH (07:25)
[2019-03-06] MEDS: docusate sod 100mg capsule PO SCH (07:25)
[2019-03-06] MEDS ORDERED: furosemide 20MG tablet PO SCH (08:00)
[2019-03-06 08:20] LABS: HBSAG SCREEN Negative (Negative)
[2019-03-06] MEDS: budesonide 0.5mg/2ml UD nebule IH SCH (08:41)
[2019-03-06 11:00] VITALS: BP 138/63
--- NOTE | 2019-03-06 15:39 | NUR ---
Patient is stable for discharge per MD orders. All discharge instructions reviewed with patient and all questions answered. Patient's medications retrieved from pharmacy. PIV discontinued and manager monitoring discontinued. Medications and belongings sent with patient. Patient left in private vehicle with family member. Patient was wheeled to lobby by primary RN.
--- NOTE | 2019-03-06 16:12 | NUR ---
[facility] documentation: I have reviewed and agree with all interventions, assessments performed and documented by Heather SANTILLAN. [facility] Medication Administration: For this medication-pass time frame, all medication were reviewed, dispensed, administered and documented per hospital policy by Heather SANTILLAN.
== END 2019-03-06 15:20 | disposition home or self-care (01) | DRG 682 ==
LOC: ER 06:24 → EDBEDREQ 11:04 → ICU 2S 12:55 → CMPBEDREQ 21:12 → PCU 3S 03-05 12:55
PROVIDERS: ADMIT Internal Medicine Critical Care Medicine; ATTEND Internal Medicine Critical Care Medicine
PROC: 06HY33Z Insertion of Infusion Device into Lower Vein, Percutaneous Approach (ICD-10-PCS; principal; 2019-03-04)
PROC: B54BZZA Ultrasonography of Right Lower Extremity Veins, Guidance (ICD-10-PCS; 2019-03-04)
PROC: 5A09357 Assistance with Respiratory Ventilation, Less than 24 Consecutive Hours, Continuous Positive Airway Pressure (ICD-10-PCS; 2019-03-04)
PROC: 5A1D70Z Performance of Urinary Filtration, Intermittent, Less than 6 Hours Per Day (ICD-10-PCS; 2019-03-04)
DX: N17.9 Acute kidney failure, unspecified (principal); I50.23 Acute on chronic systolic (congestive) heart failure; D68.9 Coagulation defect, unspecified; I13.0 Hypertensive heart and chronic kidney disease with heart failure and stage 1 through stage 4 chronic kidney disease, or unspecified chronic kidney disease; E87.4 Mixed disorder of acid-base balance; E87.2 Acidosis; E87.5 Hyperkalemia; N18.3 Chronic kidney disease, stage 3 (moderate); I48.2 Chronic atrial fibrillation; F41.9 Anxiety disorder, unspecified; R06.03 Acute respiratory distress; J44.9 Chronic obstructive pulmonary disease, unspecified; Z53.20 Procedure and treatment not carried out because of patient's decision for unspecified reasons; Z79.01 Long term (current) use of anticoagulants; Z85.038 Personal history of other malignant neoplasm of large intestine; Z86.73 Personal history of transient ischemic attack (TIA), and cerebral infarction without residual deficits; Z79.899 Other long term (current) drug therapy; Z80.9 Family history of malignant neoplasm, unspecified
CPT/HCPCS: 36415; 36600; 71045; 76775; 80047; 80053; 80305; 80320; 81003; 82570; 82803; 82948; 83605; 83735; 83880; 84100; 84132; 84145; 84156; 84300; 84484; 85018; 85025; 85610; 87040; 87081; 87207; 87340; 93005; 94640; 94660; 94760; 96365; 96375; 97110; 97161; 97530; 99291; G0257; G0378; J0610; J1644; J1815; J1940; J2060; J7626

== ENCOUNTER 2020-10-28 10:46 | Day surgery (SDC) | payer MEDICARE ==
[2020-10-21 12:17] LABS: BASOPHILS % (AUTO) 0.7 % (0-1); EOSINOPHILS # (AUTO) 0.1 X10'3 (0-0.9); EOSINOPHILS % (AUTO) 1.2 % (0-6); LYMPHOCYTES # (AUTO) 1.3 X10'3 (1.1-4.8); LYMPHOCYTES % (AUTO) 18.8 % (21-51); MEAN CORPUSCULAR HEMOGLOBIN 32.7 PG (27.0-31.0); MEAN CORPUSCULAR HGB CONC 33.1 g/dL (33.0-36.5); MEAN CORPUSCULAR VOLUME 98.8 FL (78-98); MEAN PLATELET VOLUME 7.2 FL (7.4-10.4); MONOCYTES # (AUTO) 0.5 X10'3 (0-0.9); NEUTROPHILS # (AUTO) 4.8 X10'3 (1.8-7.7); NEUTROPHILS % (AUTO) 71.3 % (42-75); PRE OP HEMATOCRIT 32.4 % (42.0-52.0); PRE OP PLATELET COUNT 168 X10'3 (140-440); RED BLOOD COUNT 3.28 X10'6 (4.70-6.10)
[2020-10-21 12:17] LABS: CLARITY,URINE CLOUDY (Clear); COLOR,URINE YELLOW (Yellow); GLUCOSE, URINE NEGATIVE (Neg); KETONES,URINE NEGATIVE (Neg); LEUKOCYTE ESTERASE ,URINE LARGE (Neg); NITRITES, URINE NEGATIVE (Neg); OCCULT BLOOD,URINE SMALL (Neg); PROTEIN,URINE NEGATIVE (Neg); UROBILINOGEN,URINE 0.2 E.U/dL (0.2-1.0)
[2020-10-21 12:18] LABS: PRE OP HEMOGLOBIN 10.7 g/dL (14.0-17.9)
[2020-10-21 12:21] LABS: UA COLLECTION TYPE CLN CATCH MIDSTREAM
[2020-10-21 12:24] LABS: SQUAMOUS EPITHELIAL CELL,UR MODERATE /LPF (FEW)
[2020-10-21 12:25] LABS: BACTERIA,URINE FEW /HPF (Neg); MUCUS STRANDS FEW /LPF (Neg); RBC,URINE 0-2 /HPF (0-2); TRANSITIONAL EPI CELLS,URINE FEW /HPF; WBC,URINE TNTC /HPF (0-4)
[2020-10-21 12:26] LABS: HYALINE CASTS 0-3 /LPF (NEGATIVE); WBC CLUMPS,URINE MANY /HPF (NEGATIVE)
[2020-10-21 12:34] LABS: PRE OP INR 1.4 INR; PRE OP PROTIME 14.6 SECONDS (9.0-12.0)
[2020-10-21 12:41] LABS: ALBUMIN 3.5 G/DL (3.4-5.0); ALBUMIN/GLOBULIN RATIO 0.7 (1.1-1.5); ALKALINE PHOSPHATASE 54 IU/L (46-116); BLOOD UREA NITROGEN 36 MG/DL (7-18); BUN/CREATININE RATIO 10.9 (5.4-32.0); CALCIUM 8.7 MG/DL (8.5-10.1); CHLORIDE 103 MMOL/L (99-107); PRE OP ALT 17 U/L (30-65); PRE OP ANION GAP 10 (8-16); PRE OP AST 18 U/L (10-37); PRE OP BILIRUB, TOTAL 0.9 MG/DL (0.0-1.0); PRE OP GLUCOSE 96 MG/DL (70-104); PRE OP POTASSIUM 4.3 MMOL/L (3.4-5.1); PRE OP SODIUM 139 MMOL/L (135-145); TOTAL CARBON DIOXIDE 25.7 MMOL/L (24-32); TOTAL PROTEIN 8.4 G/DL (6.4-8.2); eGFR 19 ML/MIN
[2020-10-28] VITALS (16 sets, daily range): BP systolic 98–136; BP diastolic 41–63
[~2020-10-28] VITALS: Ht 190.5 cm; Wt 116.0 kg
[~2020-10-28 10:46] MED LIST changes: -ALBU18HF2 IH; -ASPI-1071 PO; -ATOR40TA71 PO; -BUDE180A INH; +CITA10TA9 PO; -COU5T PO; +DIPH1TAB PO; +DOCUMENT DATE & TIME OF BETA-BLOCKER PO ONE; -DULO20CA18 PO; -ERGO500014 PO; -FERR325T28 PO; -FURO-150 PO; +FURO40TA4 PO; +LISI2.5T89 PO; -POTA-82 PO; +POTA10TA19 PO; -TIOT4MIS3 INH; +TRAZ-256 PO; +WARF-113 PO; -ZOLP10TA5 PO; +albuterol 2.5 MG/3 ML nebule NEB ONE; +cefazolin/dext.iso 2gm/100ml 100 ML IV ONE; +famotidine 20mg tablet PO ONE; +ringers solution, lacted 1,000 ML IV SCH
[2020-10-28] MEDS ORDERED: normal saline 500ml IV soln 500 ML IV SCH (10:53)
[2020-10-28] MEDS ORDERED: ENOX40SY7 SUBCUT (11:33)
[2020-10-28 12:38] LABS: PRE OP PROTIME 15.6 SECONDS (9.0-12.0)
[2020-10-28 12:50] LABS: PRE OP INR 1.5 INR
[2020-10-28] MEDS ORDERED: BUPIVAcaine/PF 2.5 mg/ml (0.25%) 30ml vial ONE (14:40)
[2020-10-28] MEDS ORDERED: fentaNYL/PF 50MCG/1 ML 2ML syringe ONE (15:10)
[2020-10-28] MEDS ORDERED: ondansetron/PF 4mg/2ml inj IV PRN (16:25)
[2020-10-28] MEDS ORDERED: ringers solution, lacted 1,000 ML IV SCH (16:25)
[2020-10-28] MEDS ORDERED: morphine 2 MG/ML inj. syringe IV PRN (16:25)
[2020-10-28] MEDS ORDERED: HYDROmorphone/PF 0.2 MG/ML SYRINGE IV PRN (16:25)
[2020-10-28] MEDS ORDERED: BUPIVAcaine/PF 2.5mg/ml (0.25%) 10ml vial ONE (16:40)
[2020-10-28] MEDS ORDERED: BUPIVACAINE liposomal/PF 13.3 MG/ML vial IM ONE (16:40)
[2020-10-28] MEDS ORDERED: succinylcholine 20mg/ml inj IV ONE (17:07)
[2020-10-28] MEDS ORDERED: sugammadex 200mg/2ml injection IV ONE (17:08)
--- NOTE | 2020-10-28 17:08 | NUR ---
Received from OR via BED, accompanied by Anesthesiologist DR MONTALVO and report given by Anesthesiologist. PT AWAKE, C/O ABDOMINAL PAIN, ABDOMEN W/5 LAP SITES W/GAUZE COVERING SITES W/AYM, CDI, WEEMS CATHETER TO GRAVITY DRAINAGE W/YELLOW URINE IN DRAINAGE BAG. Addendum: 10/28/20 at 1743 by Mary Shabazz RN Amended: Links added.
[2020-10-28] MEDS: HYDROmorphone/PF 0.2 MG/ML SYRINGE IV PRN ×4 (17:27→18:14)
[2020-10-28] MEDS ORDERED: rocuronium 10mg/ml inj IV ONE (17:28)
[2020-10-28] MEDS ORDERED: ondansetron/PF 4mg/2ml inj ONE (17:28)
[2020-10-28] MEDS ORDERED: propofol inj 20 ML IV ONE (17:28)
[2020-10-28] MEDS ORDERED: neostigmine methylsulfate 1 MG/ML 10ml vial ONE (17:28)
[2020-10-28] MEDS ORDERED: LIDOcaine 2% (20mg/ml) 5ml vial ONE (17:28)
[2020-10-28] MEDS ORDERED: dexamethasone sod phosphate 4mg/ml inj. ONE (17:28)
[2020-10-28] MEDS ORDERED: acetaminophen 1,000mg/100ml IV 100 ML IV ONE (17:28)
[2020-10-28] MEDS ORDERED: glycopyrrolate 0.2mg/ml inj ONE (17:28)
[2020-10-28] MEDS ORDERED: HYDROcodone/acetaminophen 10/325mg tab PO ONE (19:05)
--- NOTE | 2020-10-28 19:48 | NUR ---
DR INGRAM IN TO SEE PT, ORDERS TO D/C PT TO HOME. PT ABLE TO AMBULATE W/MINIMAL ASSISTANCE. D/C INSTRUCTIONS GIVEN AND GONE OVER W/PT AND PTS WHO VERBALIZED UNDERSTANDING. PT D/CD TO HOME VIA W/C TO PRIVATE VEHICLE W/O INCIDENT. Addendum: 10/28/20 at 2006 by Mary Shabazz RN Amended: Links added.
== END 2020-10-28 19:48 | disposition home or self-care (01) ==
LOC: PAS 10:46
PROVIDERS: ATTEND Surgery
DX: K43.0 Incisional hernia with obstruction, without gangrene (principal); K66.0 Peritoneal adhesions (postprocedural) (postinfection); I13.0 Hypertensive heart and chronic kidney disease with heart failure and stage 1 through stage 4 chronic kidney disease, or unspecified chronic kidney disease; N18.4 Chronic kidney disease, stage 4 (severe); I50.9 Heart failure, unspecified; G47.30 Sleep apnea, unspecified; F32.9 Major depressive disorder, single episode, unspecified; E55.9 Vitamin D deficiency, unspecified; I48.91 Unspecified atrial fibrillation; J44.9 Chronic obstructive pulmonary disease, unspecified; E66.01 Morbid (severe) obesity due to excess calories; Z68.32 Body mass index [BMI] 32.0-32.9, adult; Z85.038 Personal history of other malignant neoplasm of large intestine; Z79.899 Other long term (current) drug therapy; Z79.01 Long term (current) use of anticoagulants; Z87.442 Personal history of urinary calculi; Z98.890 Other specified postprocedural states; Z87.891 Personal history of nicotine dependence; Z86.73 Personal history of transient ischemic attack (TIA), and cerebral infarction without residual deficits
CPT/HCPCS: 36415; 49657; 64488; 80053; 81001; 82948; 85025; 85610; 85730; 87088; A6258; C1758; C9290; C9399; J0131; J0330; J1100; J1170; J2001; J2270; J2405; J2704; J2710; J3010; J3490; J7040; A4215; A4618; A6402; J7120

== ENCOUNTER 2020-12-03 06:33 | Day surgery (SDC) | payer MEDICARE ==
[~2020-12-03] VITALS: Ht 190.5 cm; Wt 109.9 kg
[~2020-12-03 06:33] MED LIST changes: -DIPH1TAB PO; -DOCUMENT DATE & TIME OF BETA-BLOCKER PO ONE; +ENOX40DI11 SUBCUT; +RIFA550T PO; -albuterol 2.5 MG/3 ML nebule NEB ONE; -cefazolin/dext.iso 2gm/100ml 100 ML IV ONE; -famotidine 20mg tablet PO ONE; -ringers solution, lacted 1,000 ML IV SCH
[2020-12-03] MEDS ORDERED: LIDOcaine 1% W/epiNEPHrine 1:200,000 10ml vial IJ ONE (07:25)
[2020-12-03 07:30] VITALS: BP 97/52
[2020-12-03] MEDS ORDERED: ENOX40SY7 SUBCUT (08:17)
[2020-12-03] MEDS ORDERED: MELA3TAB70 PO (08:17)
[2020-12-03] MEDS ORDERED: SPIR50TA5 PO (08:17)
[2020-12-03 09:08] VITALS: BP 117/59
[2020-12-03 09:23] VITALS: BP 116/62
[2020-12-03 11:01] VITALS: BP 107/55
== END 2020-12-03 11:35 ==
LOC: SSTAY O 06:33
PROVIDERS: ATTEND Radiology Diagnostic Radiology
DX: Z49.01 Encounter for fitting and adjustment of extracorporeal dialysis catheter (principal); N18.4 Chronic kidney disease, stage 4 (severe); E87.2 Acidosis; D63.8 Anemia in other chronic diseases classified elsewhere; Z95.810 Presence of automatic (implantable) cardiac defibrillator; Z79.899 Other long term (current) drug therapy; Z80.9 Family history of malignant neoplasm, unspecified
CPT/HCPCS: 36415; 36589; 85610

== ENCOUNTER 2020-12-10 16:54 | Emergency (ER) | payer MEDICARE ==
[~2020-12-10] VITALS: Ht 190.5 cm; Wt 108.9 kg
[~2020-12-10 16:54] MED LIST changes: -ENOX40DI11 SUBCUT; +ENOX40SY7 SUBCUT; +MELA3TAB70 PO; -RIFA550T PO; +SPIR50TA5 PO
[2020-12-10 18:04] LABS: BASOPHILS % (AUTO) 0.4 % (0-1); EOSINOPHILS # (AUTO) 0.1 X10'3 (0-0.9); EOSINOPHILS % (AUTO) 0.7 % (0-6); HEMOGLOBIN 8.4 g/dl (14.0-17.9); LYMPHOCYTES # (AUTO) 0.8 X10'3 (1.1-4.8); LYMPHOCYTES % (AUTO) 10.5 % (21-51); MEAN CORPUSCULAR HEMOGLOBIN 32.7 PG (27.0-31.0); MEAN CORPUSCULAR HGB CONC 33.5 g/dL (33.0-36.5); MEAN CORPUSCULAR VOLUME 97.5 FL (78-98); MEAN PLATELET VOLUME 7.2 FL (7.4-10.4); MONOCYTES # (AUTO) 0.4 X10'3 (0-0.9); NEUTROPHILS # (AUTO) 6.7 X10'3 (1.8-7.7); NEUTROPHILS % (AUTO) 83.4 % (42-75); PLATELET COUNT 169 X10'3 (140-440); RED BLOOD COUNT 2.57 X10'6 (4.70-6.10); RED CELL DISTRIBUTION WIDTH 16.7 % (11.5-14.5)
[2020-12-10 18:28] LABS: ALANINE AMINOTRANSFERASE 21 U/L (12-78); ALBUMIN 3.7 G/DL (3.4-5.0); ALBUMIN/GLOBULIN RATIO 0.8 (1.1-1.5); ALKALINE PHOSPHATASE 53 IU/L (46-116); ANION GAP 19 (8-16); ASPARTATE AMINO TRANSFERASE 16 U/L (10-37); BILIRUBIN,TOTAL 0.6 MG/DL (0.1-1.0); BLOOD UREA NITROGEN 96 MG/DL (7-18); BUN/CREATININE RATIO 10.3 (5.4-32.0); CHLORIDE 98 MMOL/L (99-107); CREATININE 9.31 MG/DL (0.60-1.10); GLUCOSE 134 MG/DL (70-104); LIPASE 985 U/L (73-393); POTASSIUM 5.5 MMOL/L (3.5-5.1); SODIUM 131 MMOL/L (135-145); TOTAL PROTEIN 8.2 G/DL (6.4-8.2); eGFR 6 ML/MIN
[2020-12-10 18:37] LABS: TOTAL CARBON DIOXIDE 14.5 MMOL/L (24-32)
[2020-12-10 19:42] VITALS: BP 102/52
== END 2020-12-10 19:26 | disposition home or self-care (01) ==
LOC: ER 16:54
DX: L76.34 Postprocedural seroma of skin and subcutaneous tissue following other procedure (principal)
CPT/HCPCS: 36415; 76705; 80053; 83690; 85025; 99284

== ENCOUNTER 2021-05-24 12:28 | Day surgery (SDC) | payer MEDICARE ==
[2021-05-24] VITALS (8 sets, daily range): BP systolic 115–138; BP diastolic 47–84
[~2021-05-24] VITALS: Ht 190.5 cm; Wt 112.4 kg
[~2021-05-24 12:28] MED LIST changes: -CARV-49 PO; +CARV3.12 PO; -CITA10TA9 PO; +CITA20TA28 PO; -ENOX40SY7 SUBCUT; +FOLI0.8T22 PO; +FURO-149 PO; -FURO40TA4 PO; +GENT30CR TP; +LISI2.5T14 PO; -LISI2.5T89 PO; -MELA3TAB70 PO; +MIDO5TAB4 PO; -POTA10TA19 PO; +POTA10TA37 PO; -WARF-113 PO; +WARF-55 PO
[2021-05-24] MEDS ORDERED: normal saline 1000ml 1,000 ML IV SCH (12:55)
[2021-05-24 13:33] LABS: ALBUMIN 3.5 G/DL (3.4-5.0); ANION GAP 11 (8-16); BLOOD UREA NITROGEN 29 MG/DL (7-18); BUN/CREATININE RATIO 9.3 (5.4-32.0); CHLORIDE 102 MMOL/L (99-107); CREATININE 3.13 MG/DL (0.60-1.10); GLUCOSE 98 MG/DL (70-104); SODIUM 141 MMOL/L (135-145); TOTAL CARBON DIOXIDE 28.2 MMOL/L (24-32); eGFR 20 ML/MIN
[2021-05-24 13:37] LABS: POTASSIUM 2.5 MMOL/L (3.5-5.1)
[2021-05-24] MEDS ORDERED: potassium Cl 40MEQ/1/2NS 520ml 520 ML IV PRN (13:40)
[2021-05-24] MEDS ORDERED: heparin 1,000unit/ml 10ml vial 10 ML ONE (13:42)
[2021-05-24] MEDS ORDERED: LIDOcaine 1%/PF 5ML 10 MG/ML VIAL ONE (13:43)
[2021-05-24] MEDS ORDERED: midazolam 1 mg/ML 2ml injection ONE (13:43)
[2021-05-24] MEDS ORDERED: fentaNYL/PF 50MCG/1 ML 2ML syringe ONE (13:43)
[2021-05-24 13:50] LABS: BASOPHILS # (AUTO) 0.1 X10'3 (0-0.2); BASOPHILS % (AUTO) 1.2 % (0-1); EOSINOPHILS # (AUTO) 0.1 X10'3 (0-0.9); HEMATOCRIT 31.2 % (42.0-52.0); LYMPHOCYTES # (AUTO) 1.5 X10'3 (1.1-4.8); LYMPHOCYTES % (AUTO) 24.9 % (21-51); MEAN CORPUSCULAR HGB CONC 35.2 g/dL (33.0-36.5); MEAN CORPUSCULAR VOLUME 102.1 FL (78-98); MEAN PLATELET VOLUME 7.3 FL (7.4-10.4); MONOCYTES # (AUTO) 0.5 X10'3 (0-0.9); MONOCYTES % (AUTO) 7.6 % (2-12); NEUTROPHILS % (AUTO) 65.3 % (42-75); PLATELET COUNT 191 X10'3 (140-440); RED BLOOD COUNT 3.05 X10'6 (4.70-6.10); RED CELL DISTRIBUTION WIDTH 14.1 % (11.5-14.5); WHITE BLOOD COUNT 6.1 X10'3 (4.5-11.0)
[2021-05-24] MEDS ORDERED: potassium Cl 20 mEq SR tablet PO STA (15:19)
--- NOTE | 2021-05-24 15:20 | NUR ---
Patient had crit low potassium 2.5 via labs, orders initiated for potassium protocol.
--- NOTE | 2021-05-24 16:43 | NUR ---
Received call from lab for crit low potassium post replacement of 2.7 K+. [address] Dr. De Leon. States to go ahead and discharge patient and advises to eat Potassium rich foods tonight and follow up in the am with Dialysis and get another potassium level drawn.
== END 2021-05-24 17:30 | disposition home or self-care (01) ==
LOC: SSTAY O 12:28
PROVIDERS: ATTEND Radiology Diagnostic Radiology
DX: T85.691A Other mechanical complication of intraperitoneal dialysis catheter, initial encounter (principal); I12.0 Hypertensive chronic kidney disease with stage 5 chronic kidney disease or end stage renal disease; N18.6 End stage renal disease; I48.91 Unspecified atrial fibrillation; Z79.899 Other long term (current) drug therapy; Z79.01 Long term (current) use of anticoagulants; Y83.8 Other surgical procedures as the cause of abnormal reaction of the patient, or of later complication, without mention of misadventure at the time of the procedure; Y92.89 Other specified places as the place of occurrence of the external cause
CPT/HCPCS: 36415; 36558; 76937; 77001; 80048; 84132; 85025; 85610; 93005; 99152; C1750; C1769; C1894; J1644; J2250; J3010; J3480; J7030; 99153; A9270

== ENCOUNTER 2021-06-12 23:49 | Emergency (ER) | payer MEDICARE ==
[~2021-06-12] VITALS: Ht 190.5 cm; Wt 111.4 kg
[~2021-06-12 23:49] MED LIST changes: -CARV3.12 PO; -FOLI0.8T22 PO; -MIDO5TAB4 PO; -POTA10TA37 PO
[2021-06-13 00:55] LABS: BASOPHILS % (AUTO) 0.9 % (0-1); HEMOGLOBIN 12.4 g/dl (14.0-17.9); MEAN PLATELET VOLUME 7.2 FL (7.4-10.4); MONOCYTES # (AUTO) 0.4 X10'3 (0-0.9); NEUTROPHILS # (AUTO) 4.2 X10'3 (1.8-7.7); PLATELET COUNT 147 X10'3 (140-440)
[2021-06-13 00:58] LABS: EOSINOPHILS % (AUTO) 0.5 % (0-6); HEMATOCRIT 35.6 % (42.0-52.0); LYMPHOCYTES % (AUTO) 17.2 % (21-51); MEAN CORPUSCULAR HEMOGLOBIN 35.4 PG (27.0-31.0); MEAN CORPUSCULAR HGB CONC 34.8 g/dL (33.0-36.5); MEAN CORPUSCULAR VOLUME 101.9 FL (78-98); MONOCYTES % (AUTO) 7.7 % (2-12); NEUTROPHILS % (AUTO) 73.7 % (42-75); RED BLOOD COUNT 3.49 X10'6 (4.70-6.10); RED CELL DISTRIBUTION WIDTH 13.7 % (11.5-14.5); WHITE BLOOD COUNT 5.6 X10'3 (4.5-11.0)
[2021-06-13 01:06] LABS: ALANINE AMINOTRANSFERASE 28 U/L (12-78); ALBUMIN 3.6 G/DL (3.4-5.0); ALBUMIN/GLOBULIN RATIO 0.8 (1.1-1.5); ALKALINE PHOSPHATASE 40 IU/L (46-116); ANION GAP 12 (8-16); ASPARTATE AMINO TRANSFERASE 27 U/L (10-37); BILIRUBIN,TOTAL 1.4 MG/DL (0.1-1.0); BLOOD UREA NITROGEN 24 MG/DL (7-18); BUN/CREATININE RATIO 5.9 (5.4-32.0); CALCIUM 8.3 MG/DL (8.5-10.1); CHLORIDE 98 MMOL/L (99-107); CREATININE 4.04 MG/DL (0.60-1.10); GLUCOSE 132 MG/DL (70-104); POTASSIUM 3.5 MMOL/L (3.5-5.1); SODIUM 136 MMOL/L (135-145); TOTAL PROTEIN 8.1 G/DL (6.4-8.2); eGFR 15 ML/MIN
[2021-06-13] MEDS ORDERED: DOXYCYCLINE 100MG CAPSULE PO STA (01:48)
[2021-06-13] MEDS ORDERED: DOXY-1 PO (01:49)
[2021-06-13 02:41] VITALS: BP 110/54
== END 2021-06-13 02:43 | disposition home or self-care (01) ==
LOC: ER 23:50
DX: J18.1 Lobar pneumonia, unspecified organism (principal); Z20.822 Contact with and (suspected) exposure to COVID-19; I12.0 Hypertensive chronic kidney disease with stage 5 chronic kidney disease or end stage renal disease; N18.6 End stage renal disease; I48.91 Unspecified atrial fibrillation; I11.0 Hypertensive heart disease with heart failure; I50.9 Heart failure, unspecified; J44.9 Chronic obstructive pulmonary disease, unspecified; Z86.73 Personal history of transient ischemic attack (TIA), and cerebral infarction without residual deficits; Z99.2 Dependence on renal dialysis; Z85.038 Personal history of other malignant neoplasm of large intestine; Z95.0 Presence of cardiac pacemaker; Z98.890 Other specified postprocedural states; Z79.01 Long term (current) use of anticoagulants; Z79.899 Other long term (current) drug therapy; Z79.2 Long term (current) use of antibiotics
CPT/HCPCS: 36415; 71045; 80053; 83605; 84145; 85025; 87040; 87635; 93005; 99285; C9803

== ENCOUNTER 2021-07-07 19:37 | Emergency (ER) | payer MEDICARE ==
[~2021-07-07] VITALS: Ht 190.5 cm; Wt 110.0 kg
[2021-07-07 20:36] LABS: BASOPHILS % (AUTO) 0.5 % (0-1); EOSINOPHILS # (AUTO) 0.1 X10'3 (0-0.9); EOSINOPHILS % (AUTO) 1.2 % (0-6); HEMATOCRIT 32.2 % (42.0-52.0); HEMOGLOBIN 11.2 g/dl (14.0-17.9); LYMPHOCYTES # (AUTO) 0.4 X10'3 (1.1-4.8); LYMPHOCYTES % (AUTO) 4.1 % (21-51); MEAN CORPUSCULAR HEMOGLOBIN 34.6 PG (27.0-31.0); MEAN CORPUSCULAR VOLUME 99.1 FL (78-98); MEAN PLATELET VOLUME 6.7 FL (7.4-10.4); MONOCYTES # (AUTO) 0.3 X10'3 (0-0.9); MONOCYTES % (AUTO) 2.7 % (2-12); NEUTROPHILS # (AUTO) 9.1 X10'3 (1.8-7.7); NEUTROPHILS % (AUTO) 91.5 % (42-75); PLATELET COUNT 145 X10'3 (140-440); RED BLOOD COUNT 3.24 X10'6 (4.70-6.10); RED CELL DISTRIBUTION WIDTH 14.4 % (11.5-14.5); WHITE BLOOD COUNT 9.9 X10'3 (4.5-11.0)
[2021-07-07 20:53] LABS: ALANINE AMINOTRANSFERASE 27 U/L (12-78); ALBUMIN 3.1 G/DL (3.4-5.0); ALBUMIN/GLOBULIN RATIO 0.8 (1.1-1.5); ALKALINE PHOSPHATASE 43 IU/L (46-116); ANION GAP 15 (8-16); ASPARTATE AMINO TRANSFERASE 32 U/L (10-37); BLOOD UREA NITROGEN 35 MG/DL (7-18); BUN/CREATININE RATIO 11.4 (5.4-32.0); CALCIUM 8.1 MG/DL (8.5-10.1); CHLORIDE 102 MMOL/L (99-107); CREATININE 3.08 MG/DL (0.60-1.10); GLUCOSE 122 MG/DL (70-104); MAGNESIUM 1.1 MG/DL (1.5-2.4); SODIUM 139 MMOL/L (135-145); TOTAL CARBON DIOXIDE 21.7 MMOL/L (24-32); TOTAL PROTEIN 7.1 G/DL (6.4-8.2); eGFR 20 ML/MIN
[2021-07-07 21:02] LABS: POTASSIUM 2.8 MMOL/L (3.5-5.1)
[2021-07-07 22:59] VITALS: BP 98/57
== END 2021-07-07 23:01 | disposition home or self-care (01) ==
LOC: ER 19:38
DX: R50.9 Fever, unspecified (principal); Z20.822 Contact with and (suspected) exposure to COVID-19; E87.6 Hypokalemia; I48.91 Unspecified atrial fibrillation; J44.9 Chronic obstructive pulmonary disease, unspecified; I13.2 Hypertensive heart and chronic kidney disease with heart failure and with stage 5 chronic kidney disease, or end stage renal disease; N18.6 End stage renal disease; F41.9 Anxiety disorder, unspecified; Z99.2 Dependence on renal dialysis; Z86.73 Personal history of transient ischemic attack (TIA), and cerebral infarction without residual deficits; Z85.038 Personal history of other malignant neoplasm of large intestine; Z95.0 Presence of cardiac pacemaker; Z98.890 Other specified postprocedural states; Z79.899 Other long term (current) drug therapy
CPT/HCPCS: 36415; 71045; 80053; 83605; 83735; 83880; 84145; 84484; 85025; 87040; 87502; 87503; 87635; 93005; 99285; C9803

== ENCOUNTER 2021-07-11 11:38 | Emergency (ER) | payer MEDICARE ==
[~2021-07-11] VITALS: Ht 190.5 cm; Wt 109.1 kg
[2021-07-11 11:50] VITALS: BP 127/71
[2021-07-11 14:15] LABS: BASOPHILS # (AUTO) 0.1 X10'3 (0-0.2); BASOPHILS % (AUTO) 0.9 % (0-1); EOSINOPHILS # (AUTO) 0.3 X10'3 (0-0.9); EOSINOPHILS % (AUTO) 4.8 % (0-6); HEMATOCRIT 33.9 % (42.0-52.0); HEMOGLOBIN 11.6 g/dl (14.0-17.9); LYMPHOCYTES # (AUTO) 1.5 X10'3 (1.1-4.8); LYMPHOCYTES % (AUTO) 26.5 % (21-51); MEAN CORPUSCULAR HEMOGLOBIN 33.7 PG (27.0-31.0); MEAN CORPUSCULAR HGB CONC 34.2 g/dL (33.0-36.5); MEAN CORPUSCULAR VOLUME 98.7 FL (78-98); MEAN PLATELET VOLUME 7.1 FL (7.4-10.4); MONOCYTES # (AUTO) 0.4 X10'3 (0-0.9); MONOCYTES % (AUTO) 7.2 % (2-12); NEUTROPHILS # (AUTO) 3.5 X10'3 (1.8-7.7); NEUTROPHILS % (AUTO) 60.6 % (42-75); PLATELET COUNT 177 X10'3 (140-440); RED BLOOD COUNT 3.44 X10'6 (4.70-6.10); RED CELL DISTRIBUTION WIDTH 14.1 % (11.5-14.5); WHITE BLOOD COUNT 5.8 X10'3 (4.5-11.0)
[2021-07-11 14:22] LABS: ALANINE AMINOTRANSFERASE 20 U/L (12-78); ALBUMIN 3.4 G/DL (3.4-5.0); ALBUMIN/GLOBULIN RATIO 0.8 (1.1-1.5); ALKALINE PHOSPHATASE 41 IU/L (46-116); ANION GAP 12 (8-16); ASPARTATE AMINO TRANSFERASE 18 U/L (10-37); BILIRUBIN,TOTAL 0.8 MG/DL (0.1-1.0); BLOOD UREA NITROGEN 27 MG/DL (7-18); BUN/CREATININE RATIO 9.3 (5.4-32.0); CALCIUM 8.5 MG/DL (8.5-10.1); CHLORIDE 101 MMOL/L (99-107); CREATININE 2.89 MG/DL (0.60-1.10); GLUCOSE 132 MG/DL (70-104); MAGNESIUM 1.5 MG/DL (1.5-2.4); SODIUM 140 MMOL/L (135-145); TOTAL CARBON DIOXIDE 27.4 MMOL/L (24-32); TOTAL PROTEIN 7.8 G/DL (6.4-8.2); eGFR 22 ML/MIN
[2021-07-11 14:29] LABS: POTASSIUM 2.9 MMOL/L (3.5-5.1)
[2021-07-11] MEDS ORDERED: LIDOcaine 1% W/epiNEPHrine 1:200,000 10ml vial IJ ONE (14:35)
[2021-07-11] MEDS ORDERED: sulfamethoxazole/trimethoprim DS (800/160mg) tablet PO ONE (14:35)
[2021-07-11] MEDS ORDERED: SULF1TAB49 PO (14:43)
[2021-07-11] MEDS ORDERED: LIDOcaine 1% W/epiNEPHrine 1:100,000 20ml vial IJ ONE (15:00)
== END 2021-07-11 16:01 | disposition home or self-care (01) ==
LOC: ER 11:38
DX: E87.6 Hypokalemia (principal); B96.5 Pseudomonas (aeruginosa) (mallei) (pseudomallei) as the cause of diseases classified elsewhere; I48.91 Unspecified atrial fibrillation; I11.0 Hypertensive heart disease with heart failure; I50.9 Heart failure, unspecified; J44.9 Chronic obstructive pulmonary disease, unspecified; I12.0 Hypertensive chronic kidney disease with stage 5 chronic kidney disease or end stage renal disease; N18.6 End stage renal disease; Z95.0 Presence of cardiac pacemaker; Z98.890 Other specified postprocedural states; Z79.01 Long term (current) use of anticoagulants; Z79.899 Other long term (current) drug therapy; Z99.2 Dependence on renal dialysis; Z85.038 Personal history of other malignant neoplasm of large intestine; Z86.73 Personal history of transient ischemic attack (TIA), and cerebral infarction without residual deficits
CPT/HCPCS: 36415; 80053; 83735; 84145; 85025; 93005; 99284

== ENCOUNTER 2022-02-16 15:34 | Emergency (ER) | payer MEDICARE ==
[~2022-02-16] VITALS: Ht 190.5 cm; Wt 121.4 kg
[~2022-02-16 15:34] MED LIST changes: -LISI2.5T14 PO; -SPIR50TA5 PO
[2022-02-16 16:39] LABS: ALANINE AMINOTRANSFERASE 9 U/L (12-78); ALBUMIN 2.6 G/DL (3.4-5.0); ALBUMIN/GLOBULIN RATIO 0.6 (1.1-1.5); ALKALINE PHOSPHATASE 54 IU/L (46-116); ANION GAP 9 (8-16); ASPARTATE AMINO TRANSFERASE 10 U/L (10-37); BASOPHILS % (AUTO) 0.3 % (0-1); BILIRUBIN,TOTAL 0.8 MG/DL (0.1-1.0); BLOOD UREA NITROGEN 15 MG/DL (7-18); BUN/CREATININE RATIO 5.8 (5.4-32.0); CALCIUM 8.1 MG/DL (8.5-10.1); CHLORIDE 105 MMOL/L (99-107); EOSINOPHILS % (AUTO) 0.1 % (0-6); GLUCOSE 106 MG/DL (70-104); HEMATOCRIT 30.4 % (42.0-52.0); HEMOGLOBIN 10.1 g/dl (14.0-17.9); LYMPHOCYTES # (AUTO) 0.7 X10'3 (1.1-4.8); LYMPHOCYTES % (AUTO) 9.8 % (21-51); MEAN CORPUSCULAR HGB CONC 33.3 g/dL (33.0-36.5); MEAN CORPUSCULAR VOLUME 99.1 FL (78-98); MEAN PLATELET VOLUME 7.4 FL (7.4-10.4); MONOCYTES # (AUTO) 0.4 X10'3 (0-0.9); MONOCYTES % (AUTO) 5.5 % (2-12); NEUTROPHILS # (AUTO) 5.7 X10'3 (1.8-7.7); NEUTROPHILS % (AUTO) 84.3 % (42-75); PLATELET COUNT 143 X10'3 (140-440); POTASSIUM 3.6 MMOL/L (3.5-5.1); RED BLOOD COUNT 3.07 X10'6 (4.70-6.10); RED CELL DISTRIBUTION WIDTH 16.8 % (11.5-14.5); SODIUM 138 MMOL/L (135-145); TOTAL CARBON DIOXIDE 23.6 MMOL/L (24-32); WHITE BLOOD COUNT 6.7 X10'3 (4.5-11.0); eGFR 24 ML/MIN
[2022-02-16 17:02] LABS: ANISOCYTOSIS 1+; BURR CELLS FEW; PLATELET ESTIMATE NORMAL
--- NOTE | 2022-02-16 17:17 | NUR ---
Pt placed on teletypesetter monitor for further observation.Pt denies cp, sob or other sx.
--- NOTE | 2022-02-16 17:25 | NUR ---
Assumed care of pt.
[2022-02-16 19:52] LABS: GLUCOSE,BODY FLUID 115 MG/DL; LDH,BODY FLUID 100 U/L; TOTAL PROTEIN,BODY FLUID 3.7 G/DL
[2022-02-16 20:13] LABS: BFAPPEAR CLOUDY
[2022-02-16 20:14] LABS: BFCOLOR OTHER
[2022-02-16 20:15] LABS: BF RBC COUNT 5600 /CU MM; BF WBC COUNT 100 /CU MM (0-1000); BFVOLUME 33 ML
[2022-02-16 20:28] VITALS: BP 121/66
[2022-02-16 20:29] LABS: EOSINOPHILS,BODY FLUID 1 %; LYMPHOCYTES,BODY FLUID 40 %; MONOCYTES,BODY FLUID 29 %; NEUTROPHILS,BODY FLUID 30 %
== END 2022-02-16 20:30 | disposition home or self-care (01) ==
LOC: ER 15:35
DX: J90 Pleural effusion, not elsewhere classified (principal); R18.8 Other ascites; R77.0 Abnormality of albumin; I48.91 Unspecified atrial fibrillation; I11.0 Hypertensive heart disease with heart failure; I50.9 Heart failure, unspecified; J44.9 Chronic obstructive pulmonary disease, unspecified; I12.0 Hypertensive chronic kidney disease with stage 5 chronic kidney disease or end stage renal disease; N18.6 End stage renal disease; Z86.73 Personal history of transient ischemic attack (TIA), and cerebral infarction without residual deficits; Z99.2 Dependence on renal dialysis; Z85.038 Personal history of other malignant neoplasm of large intestine; Z95.0 Presence of cardiac pacemaker; Z98.890 Other specified postprocedural states; Z79.899 Other long term (current) drug therapy; Z79.01 Long term (current) use of anticoagulants
CPT/HCPCS: 36415; 71045; 74176; 76882; 80053; 82945; 83605; 83615; 83880; 84157; 85008; 85025; 87015; 87040; 87070; 87075; 89051; 99285; A6449

== ENCOUNTER 2022-02-21 09:32 | Day surgery (SDC) | payer MEDICARE ==
[~2022-02-21] VITALS: Ht 190.5 cm; Wt 111.8 kg
[2022-02-21] MEDS ORDERED: LIDOcaine 1%/PF 5ML 10 MG/ML VIAL SQ ONE (09:45)
[2022-02-21] MEDS ORDERED: albumin 25% 100mL bottle x 1 IV PRN (09:55)
[2022-02-21] MEDS ORDERED: FURO20TA4 PO (09:57)
[2022-02-21] MEDS ORDERED: POTA-188 PO (09:57)
[2022-02-21] MEDS ORDERED: MIDO5TAB4 PO (09:57)
[2022-02-21] MEDS ORDERED: FEBU40TA3 PO (09:57)
[2022-02-21] MEDS ORDERED: CITA10TA93 PO (09:57)
[2022-02-21] MEDS ORDERED: FERR324T2 PO (09:57)
[2022-02-21 10:00] VITALS: BP 115/54
[2022-02-21 10:21] LABS: BASOPHILS # (AUTO) 0.1 X10'3 (0-0.2); BASOPHILS % (AUTO) 1.1 % (0-1); EOSINOPHILS # (AUTO) 0.2 X10'3 (0-0.9); EOSINOPHILS % (AUTO) 3.6 % (0-6); HEMATOCRIT 32.2 % (42.0-52.0); HEMOGLOBIN 10.7 g/dl (14.0-17.9); LYMPHOCYTES # (AUTO) 0.9 X10'3 (1.1-4.8); LYMPHOCYTES % (AUTO) 17.4 % (21-51); MEAN CORPUSCULAR HGB CONC 33.3 g/dL (33.0-36.5); MEAN CORPUSCULAR VOLUME 99.1 FL (78-98); MEAN PLATELET VOLUME 7.4 FL (7.4-10.4); MONOCYTES # (AUTO) 0.3 X10'3 (0-0.9); MONOCYTES % (AUTO) 6.4 % (2-12); NEUTROPHILS # (AUTO) 3.8 X10'3 (1.8-7.7); NEUTROPHILS % (AUTO) 71.5 % (42-75); PLATELET COUNT 157 X10'3 (140-440); RED BLOOD COUNT 3.24 X10'6 (4.70-6.10); RED CELL DISTRIBUTION WIDTH 17.3 % (11.5-14.5); WHITE BLOOD COUNT 5.3 X10'3 (4.5-11.0)
[2022-02-21 11:30] VITALS: BP 110/64
--- NOTE | 2022-02-21 11:30 | NUR ---
Dr. Vázquez scanned pt with ultrasound, not enough fluid to do paracentesis.
== END 2022-02-21 11:45 | disposition home or self-care (01) ==
LOC: SSTAY O 09:32
PROVIDERS: ATTEND Preventive Medicine Aerospace Medicine
DX: Z03.89 Encounter for observation for other suspected diseases and conditions ruled out (principal)
CPT/HCPCS: 36415; 76705; 85025; 85610; A6258; A6449

== ENCOUNTER 2022-06-28 14:21 | Inpatient (IN) | payer MEDICARE ==
[~2022-06-28] VITALS: Ht 190.5 cm; Wt 104.0 kg
[~2022-06-28 14:21] MED LIST changes: +CITA10TA93 PO; -CITA20TA28 PO; +FEBU40TA3 PO; +FERR324T2 PO; -FURO-149 PO; +FURO20TA4 PO; -GABA-532 PO; -GENT30CR TP; +MIDO5TAB4 PO; +POTA-188 PO
[2022-06-28 15:43] LABS: BASOPHILS % (AUTO) 0.8 % (0-1); EOSINOPHILS % (AUTO) 0.7 % (0-6); HEMATOCRIT 25.2 % (42.0-52.0); HEMOGLOBIN 8.6 g/dl (14.0-17.9); LYMPHOCYTES # (AUTO) 0.9 X10'3 (1.1-4.8); LYMPHOCYTES % (AUTO) 15.3 % (21-51); MEAN CORPUSCULAR HEMOGLOBIN 34.5 PG (27.0-31.0); MEAN CORPUSCULAR HGB CONC 34.2 g/dL (33.0-36.5); MEAN CORPUSCULAR VOLUME 100.9 FL (78-98); MEAN PLATELET VOLUME 6.7 FL (7.4-10.4); MONOCYTES # (AUTO) 0.3 X10'3 (0-0.9); MONOCYTES % (AUTO) 5.7 % (2-12); NEUTROPHILS # (AUTO) 4.5 X10'3 (1.8-7.7); NEUTROPHILS % (AUTO) 77.5 % (42-75); PLATELET COUNT 202 X10'3 (140-440); RED CELL DISTRIBUTION WIDTH 14.9 % (11.5-14.5); WHITE BLOOD COUNT 5.9 X10'3 (4.5-11.0)
[2022-06-28 15:58] LABS: ALANINE AMINOTRANSFERASE 8 U/L (12-78); ALBUMIN 3.1 G/DL (3.4-5.0); ALBUMIN/GLOBULIN RATIO 0.7 (1.1-1.5); ALKALINE PHOSPHATASE 65 IU/L (46-116); ANION GAP 7 (8-16); ASPARTATE AMINO TRANSFERASE 13 U/L (10-37); BILIRUBIN,TOTAL 1.5 MG/DL (0.1-1.0); BLOOD UREA NITROGEN 25 MG/DL (7-18); CALCIUM 8.5 MG/DL (8.5-10.1); CHLORIDE 100 MMOL/L (99-107); CREATININE 3.11 MG/DL (0.60-1.10); GLUCOSE 103 MG/DL (70-104); SODIUM 135 MMOL/L (135-145); TOTAL CARBON DIOXIDE 27.9 MMOL/L (24-32); TOTAL PROTEIN 7.4 G/DL (6.4-8.2); eGFR 20 ML/MIN
[2022-06-28 16:00] LABS: POTASSIUM 2.9 MMOL/L (3.5-5.1)
[2022-06-28] MEDS ORDERED: potassium Cl 10 mEq/100mL bag IV ONE (16:15)
[2022-06-28] MEDS ORDERED: potassium Cl 20 mEq SR tablet PO STA (16:16)
[2022-06-28] MEDS ORDERED: CefTRIAXone 2gm/D5W 50ml BAG 50 ML IV ONE (17:55)
[2022-06-28] MEDS ORDERED: morphine 4 MG/ML inj SYRINge IV ONE (18:10)
[2022-06-28] MEDS ORDERED: human prothrombin complex-PCC 120 ML IV ONE (20:35)
[2022-06-28] MEDS ORDERED: phytonadione inj. 5 MG in normal saline 100ml IV soln 100 ML IV ONE (20:35)
[2022-06-28] MEDS ORDERED: temazepam 15mg capsule PO PRN (21:00)
[2022-06-28] MEDS ORDERED: amitriptyline 10mg tablet PO SCH (21:19)
[2022-06-28] MEDS ORDERED: acetaminophen 650mg rectal suppository RC PRN (21:20)
[2022-06-28] MEDS ORDERED: ondansetron 4mg rapidly disintigrating tab PO PRN (21:20)
[2022-06-28] MEDS ORDERED: diphenhydrAMINE 25mg capsule PO PRN (21:20)
[2022-06-28] MEDS ORDERED: magnesium 4gm in 100ml NS 100 ML IV PRN (21:20)
[2022-06-28] MEDS ORDERED: magnesium Cl slow-release 64mg tablet PO PRN (21:20)
[2022-06-28] MEDS ORDERED: potassium Cl 20 mEq SR tablet PO PRN ×2 (21:20)
[2022-06-28] MEDS ORDERED: mag hydrox/Alum hydrox/simeth 30ml oral suspension PO PRN (21:20)
[2022-06-28] MEDS ORDERED: magnesium hydroxide 30ml (MOM) UD suspension PO PRN (21:20)
[2022-06-28] MEDS ORDERED: ondansetron/PF 4mg/2ml inj IV PRN (21:20)
[2022-06-28] MEDS ORDERED: potassium Cl 40MEQ/1/2NS 520ml 520 ML IV PRN (21:20)
[2022-06-28] MEDS ORDERED: morphine 2 MG/ML inj. syringe IV PRN (21:20)
[2022-06-28] MEDS ORDERED: acetaminophen 325mg tablet PO PRN ×2 (21:20)
[2022-06-28] MEDS ORDERED: diphenhydrAMINE 50 mg/ml inj IV PRN (21:20)
[2022-06-28] MEDS ORDERED: bisacodyl 10mg suppository rectal RC PRN (21:20)
[2022-06-28] MEDS: morphine 2 MG/ML inj. syringe IV PRN (21:23)
[2022-06-28 21:59] LABS: MAGNESIUM 1.8 MG/DL (1.5-2.4); PHOSPHORUS 2.6 MG/DL (2.3-4.5)
[2022-06-28 22:05] LABS: BASOPHILS % (AUTO) 0.7 % (0-1); EOSINOPHILS % (AUTO) 0.8 % (0-6); HEMATOCRIT 23.9 % (42.0-52.0); HEMOGLOBIN 8.1 g/dl (14.0-17.9); LYMPHOCYTES # (AUTO) 1.1 X10'3 (1.1-4.8); LYMPHOCYTES % (AUTO) 21.1 % (21-51); MEAN CORPUSCULAR HEMOGLOBIN 34.5 PG (27.0-31.0); MEAN CORPUSCULAR VOLUME 101.6 FL (78-98); MEAN PLATELET VOLUME 6.6 FL (7.4-10.4); MONOCYTES # (AUTO) 0.4 X10'3 (0-0.9); MONOCYTES % (AUTO) 7.3 % (2-12); NEUTROPHILS # (AUTO) 3.7 X10'3 (1.8-7.7); NEUTROPHILS % (AUTO) 70.1 % (42-75); PLATELET COUNT 180 X10'3 (140-440); RED BLOOD COUNT 2.35 X10'6 (4.70-6.10); RED CELL DISTRIBUTION WIDTH 14.8 % (11.5-14.5); WHITE BLOOD COUNT 5.3 X10'3 (4.5-11.0)
[2022-06-28 22:11] LABS: HEMOGLOBIN A1C 5.3 % (4.5-6.2)
[2022-06-28 22:15] LABS: APTT 50 SECONDS (22-32)
--- NOTE | 2022-06-29 01:00 | NUR ---
Received from ER in fair condition skin is slightly jaundiced. Pt. is awake alert oriented x4 moves all extremities moves from guerney to bed with minimal assistance. Abd is very large/long and mildly distended with hypoactive bowel sounds abd is mildly taut with small amt of bruising near umbilicus and left lower quandrant. . Able to void per urinal light kamini orange color mod amt. Peripheral IV in Left arm infusing Kcentra. Medicated for pain and potntial nausea tolerated well no adverse effects.
[2022-06-29] MEDS: morphine 2 MG/ML inj. syringe IV PRN ×4 (01:39→13:45)
[2022-06-29 01:49] VITALS: BP 111/61
[2022-06-29 02:30] VITALS: BP 102/63
[2022-06-29 06:27] LABS: APTT 30 SECONDS (22-32); BASOPHILS % (AUTO) 0.8 % (0-1); EOSINOPHILS # (AUTO) 0.1 X10'3 (0-0.9); EOSINOPHILS % (AUTO) 1.8 % (0-6); HEMATOCRIT 24.9 % (42.0-52.0); HEMOGLOBIN 8.4 g/dl (14.0-17.9); LYMPHOCYTES # (AUTO) 0.9 X10'3 (1.1-4.8); LYMPHOCYTES % (AUTO) 15.7 % (21-51); MEAN CORPUSCULAR HEMOGLOBIN 34.2 PG (27.0-31.0); MEAN CORPUSCULAR HGB CONC 33.5 g/dL (33.0-36.5); MEAN CORPUSCULAR VOLUME 101.9 FL (78-98); MEAN PLATELET VOLUME 6.8 FL (7.4-10.4); MONOCYTES # (AUTO) 0.4 X10'3 (0-0.9); MONOCYTES % (AUTO) 7.2 % (2-12); NEUTROPHILS # (AUTO) 4.1 X10'3 (1.8-7.7); NEUTROPHILS % (AUTO) 74.5 % (42-75); PLATELET COUNT 185 X10'3 (140-440); RED BLOOD COUNT 2.45 X10'6 (4.70-6.10); RED CELL DISTRIBUTION WIDTH 14.7 % (11.5-14.5); WHITE BLOOD COUNT 5.6 X10'3 (4.5-11.0)
--- NOTE | 2022-06-29 06:42 | NUR ---
Bruising in the scrotum as well.
--- NOTE | 2022-06-29 06:54 | NUR ---
Patient in room PCU 3167W. I have received report from Cher RN and had the opportunity to ask questions and assume patient care. Pt is laying semi fowlers. Pt on 2L NC. No s/s of distress. No c/o pain at this time. BLL, call light within reach, frquently used items in reach, frequent rounding, perfusionist socks on. Will continue to monitor.
[2022-06-29] MEDS: HYDROcodone/acetaminophen 5mg/325mg tablet PO PRN ×2 (07:14→12:19)
[2022-06-29] MEDS ORDERED: pantoprazole 40mg Tablet.DR PO SCH (07:30)
[2022-06-29] MEDS ORDERED: furosemide 10 MG/1 ML 10ml inj IV SCH (08:00)
[2022-06-29] MEDS ORDERED: K and/or MAG REPLACEMENT MC SCH (08:00)
[2022-06-29] MEDS ORDERED: docusate sod 100mg capsule PO SCH (08:00)
[2022-06-29 09:33] LABS: ALANINE AMINOTRANSFERASE 7 U/L (12-78); ALBUMIN 2.8 G/DL (3.4-5.0); ALBUMIN/GLOBULIN RATIO 0.7 (1.1-1.5); ALKALINE PHOSPHATASE 59 IU/L (46-116); ANION GAP 11 (8-16); ASPARTATE AMINO TRANSFERASE 13 U/L (10-37); BILIRUBIN,TOTAL 1.3 MG/DL (0.1-1.0); BLOOD UREA NITROGEN 24 MG/DL (7-18); BUN/CREATININE RATIO 8.4 (5.4-32.0); CALCIUM 8.2 MG/DL (8.5-10.1); CHLORIDE 101 MMOL/L (99-107); CHOLESTEROL 109 MG/DL (0-200); CREATININE 2.86 MG/DL (0.60-1.10); GLUCOSE 104 MG/DL (70-104); HDL CHOLESTEROL 36 MG/DL (35-60); LDL CHOLESTEROL 64 MG/DL (50-100); MAGNESIUM 1.8 MG/DL (1.5-2.4); POTASSIUM 3.6 MMOL/L (3.5-5.1); SODIUM 138 MMOL/L (135-145); TOTAL CARBON DIOXIDE 25.9 MMOL/L (24-32); TOTAL PROTEIN 6.7 G/DL (6.4-8.2); TRIGLYCERIDES 74 MG/DL (20-135); eGFR 22 ML/MIN
--- NOTE | 2022-06-29 16:27 | NUR ---
Pt Dcd to personal vehicle with . VSS, pt afebrile no issues with medication. Follow up discharge questions answered. PIV to L FA removed. Tip intact no c/o pain at the site.
--- NOTE | 2022-07-19 13:54 | NUR ---
Case Management DC follow up: Left VM with name, reason for calling, and telephone number.
== END 2022-06-29 16:41 | disposition home health service (06) | DRG 604 ==
LOC: ER 14:21 → ED HOLD 21:27 → PCU 3S 23:55
PROVIDERS: ADMIT Family Medicine; ATTEND Family Medicine
DX: S30.1XXA Contusion of abdominal wall, initial encounter (principal); I50.23 Acute on chronic systolic (congestive) heart failure; N17.9 Acute kidney failure, unspecified; I13.0 Hypertensive heart and chronic kidney disease with heart failure and stage 1 through stage 4 chronic kidney disease, or unspecified chronic kidney disease; D62 Acute posthemorrhagic anemia; D68.69 Other thrombophilia; I48.20 Chronic atrial fibrillation, unspecified; R18.8 Other ascites; I42.9 Cardiomyopathy, unspecified; N18.4 Chronic kidney disease, stage 4 (severe); K72.90 Hepatic failure, unspecified without coma; L97.519 Non-pressure chronic ulcer of other part of right foot with unspecified severity; E78.5 Hyperlipidemia, unspecified; T45.515A Adverse effect of anticoagulants, initial encounter; I87.8 Other specified disorders of veins; F41.9 Anxiety disorder, unspecified; E87.6 Hypokalemia; I25.10 Atherosclerotic heart disease of native coronary artery without angina pectoris; I27.20 Pulmonary hypertension, unspecified; J44.9 Chronic obstructive pulmonary disease, unspecified; Z79.01 Long term (current) use of anticoagulants; Z85.038 Personal history of other malignant neoplasm of large intestine; Z86.73 Personal history of transient ischemic attack (TIA), and cerebral infarction without residual deficits; Z87.891 Personal history of nicotine dependence; Z95.0 Presence of cardiac pacemaker; Z79.899 Other long term (current) drug therapy; Y92.89 Other specified places as the place of occurrence of the external cause
CPT/HCPCS: 36415; 71045; 74176; 80053; 80061; 83036; 83735; 83880; 84100; 84484; 85025; 85610; 85730; 86885; 86900; 86901; 93005; 93306; 96365; 96367; 96375; 99285; A4649; A6402; A6446; A6449; G0378; J0696; J1940; J2270; J2405; J3430; J3480; J3490; J7168

== ENCOUNTER 2022-10-28 13:50 | Emergency (ER) | payer MEDICARE ==
[~2022-10-28] VITALS: Ht 190.5 cm; Wt 102.0 kg
[~2022-10-28 13:50] MED LIST changes: -FERR324T2 PO; -WARF-55 PO
--- NOTE | 2022-10-28 14:15 | NUR ---
patient to ct.
--- NOTE | 2022-10-28 14:33 | NUR ---
Trauma alert called off by Cindy JOHNSON.
[2022-10-28] MEDS ORDERED: HYDROcodone/acetaminophen 5mg/325mg tablet PO STA (14:54)
[2022-10-28 15:01] LABS: BASOPHILS % (AUTO) 0.8 % (0-1); EOSINOPHILS # (AUTO) 0.1 X10'3 (0-0.9); EOSINOPHILS % (AUTO) 2.4 % (0-6); HEMATOCRIT 27.8 % (42.0-52.0); HEMOGLOBIN 9.1 g/dl (14.0-17.9); LYMPHOCYTES # (AUTO) 0.8 X10'3 (1.1-4.8); LYMPHOCYTES % (AUTO) 16.2 % (21-51); MEAN CORPUSCULAR HEMOGLOBIN 33.8 PG (27.0-31.0); MEAN CORPUSCULAR HGB CONC 32.8 g/dL (33.0-36.5); MEAN CORPUSCULAR VOLUME 103.3 FL (78-98); MONOCYTES # (AUTO) 0.4 X10'3 (0-0.9); MONOCYTES % (AUTO) 7.5 % (2-12); NEUTROPHILS # (AUTO) 3.5 X10'3 (1.8-7.7); NEUTROPHILS % (AUTO) 73.1 % (42-75); PLATELET COUNT 142 X10'3 (140-440); RED BLOOD COUNT 2.69 X10'6 (4.70-6.10); RED CELL DISTRIBUTION WIDTH 17.9 % (11.5-14.5); WHITE BLOOD COUNT 4.8 X10'3 (4.5-11.0)
[2022-10-28 15:19] LABS: ALANINE AMINOTRANSFERASE 9 U/L (12-78); ALBUMIN 2.7 G/DL (3.4-5.0); ALBUMIN/GLOBULIN RATIO 0.6 (1.1-1.5); ALKALINE PHOSPHATASE 71 IU/L (46-116); ANION GAP 8 (8-16); ASPARTATE AMINO TRANSFERASE 15 U/L (10-37); BLOOD UREA NITROGEN 38 MG/DL (7-18); BUN/CREATININE RATIO 13.3 (10.0-20.0); CALCIUM 8.4 MG/DL (8.5-10.1); CHLORIDE 101 MMOL/L (99-107); CREATININE 2.85 MG/DL (0.60-1.10); GLUCOSE 105 MG/DL (70-104); POTASSIUM 3.8 MMOL/L (3.5-5.1); SODIUM 136 MMOL/L (135-145); TOTAL CARBON DIOXIDE 27.1 MMOL/L (24-32); TOTAL PROTEIN 7.3 G/DL (6.4-8.2); eGFR 22 ML/MIN
[2022-10-28] MEDS ORDERED: LIDOcaine 1% W/epiNEPHrine 1:100,000 20ml vial SQ ONE (15:30)
[2022-10-28] MEDS ORDERED: CEPH500C81 PO (16:36)
[2022-10-28] MEDS ORDERED: HYDR-3965 PO (16:36)
[2022-10-28 17:22] VITALS: BP 118/66
== END 2022-10-28 17:17 | disposition home or self-care (01) ==
LOC: ER 13:50
DX: S01.81XA Laceration without foreign body of other part of head, initial encounter (principal); W19.XXXA Unspecified fall, initial encounter; Y93.89 Activity, other specified; Y92.89 Other specified places as the place of occurrence of the external cause; Y99.8 Other external cause status
CPT/HCPCS: 12011; 36415; 70450; 72125; 73080; 73560; 80053; 82948; 85025; 85610; 99284; A6223; A6258; A6446; A6449

== ENCOUNTER 2022-11-26 21:36 | Emergency (ER) | payer MEDICARE ==
[~2022-11-26] VITALS: Ht 190.5 cm; Wt 103.2 kg
[2022-11-26 22:24] LABS: BASOPHILS # (AUTO) 0.1 X10'3 (0-0.2); BASOPHILS % (AUTO) 0.9 % (0-1); EOSINOPHILS # (AUTO) 0.1 X10'3 (0-0.9); EOSINOPHILS % (AUTO) 1.4 % (0-6); HEMATOCRIT 26.6 % (42.0-52.0); HEMOGLOBIN 8.9 g/dl (14.0-17.9); LYMPHOCYTES # (AUTO) 0.9 X10'3 (1.1-4.8); LYMPHOCYTES % (AUTO) 15.6 % (21-51); MEAN CORPUSCULAR HGB CONC 33.4 g/dL (33.0-36.5); MEAN CORPUSCULAR VOLUME 104.5 FL (78-98); MEAN PLATELET VOLUME 7.5 FL (7.4-10.4); MONOCYTES # (AUTO) 0.6 X10'3 (0-0.9); MONOCYTES % (AUTO) 9.7 % (2-12); NEUTROPHILS # (AUTO) 4.4 X10'3 (1.8-7.7); NEUTROPHILS % (AUTO) 72.4 % (42-75); PLATELET COUNT 166 X10'3 (140-440); RED BLOOD COUNT 2.55 X10'6 (4.70-6.10); RED CELL DISTRIBUTION WIDTH 16.7 % (11.5-14.5); WHITE BLOOD COUNT 6.1 X10'3 (4.5-11.0)
[2022-11-26 22:31] LABS: ALANINE AMINOTRANSFERASE 9 U/L (12-78); ALBUMIN 2.8 G/DL (3.4-5.0); ALBUMIN/GLOBULIN RATIO 0.6 (1.1-1.5); ALKALINE PHOSPHATASE 108 IU/L (46-116); ANION GAP 9 (8-16); ASPARTATE AMINO TRANSFERASE 14 U/L (10-37); BILIRUBIN,TOTAL 1.6 MG/DL (0.1-1.0); BLOOD UREA NITROGEN 53 MG/DL (7-18); BUN/CREATININE RATIO 14.3 (10.0-20.0); CALCIUM 8.8 MG/DL (8.5-10.1); CHLORIDE 99 MMOL/L (99-107); GLUCOSE 93 MG/DL (70-104); POTASSIUM 5.1 MMOL/L (3.5-5.1); SODIUM 134 MMOL/L (135-145); TOTAL CARBON DIOXIDE 26.5 MMOL/L (24-32); TOTAL PROTEIN 7.6 G/DL (6.4-8.2); eGFR 16 ML/MIN
[2022-11-26 23:05] LABS: CLARITY,URINE SLIGHTLY CLOUDY (Clear); COLOR,URINE YELLOW (Yellow); GLUCOSE, URINE NEGATIVE (Neg); KETONES,URINE NEGATIVE (Neg); LEUKOCYTE ESTERASE ,URINE LARGE (Neg); NITRITES, URINE NEGATIVE (Neg); OCCULT BLOOD,URINE TRACE-INTACT (Neg); PROTEIN,URINE NEGATIVE (Neg); UROBILINOGEN,URINE 0.2 E.U/dL (0.2-1.0)
[2022-11-26 23:06] LABS: UA COLLECTION TYPE VOIDED
[2022-11-26 23:15] LABS: BACTERIA,URINE FEW /HPF (Neg); MUCUS STRANDS FEW /LPF (Neg); RBC,URINE 0-2 /HPF (0-2); SQUAMOUS EPITHELIAL CELL,UR FEW /LPF (FEW); WBC CLUMPS,URINE MODERATE /HPF (NEGATIVE); WBC,URINE TNTC /HPF (0-4)
[2022-11-27] MEDS ORDERED: CefTRIAXone 2gm/D5W 50ml BAG 50 ML IV ONE
[2022-11-27] MEDS ORDERED: CEPH-585 PO (00:01)
[2022-11-27 01:19] VITALS: BP 117/58
== END 2022-11-27 01:22 | disposition home or self-care (01) ==
LOC: ER 21:36
DX: N39.0 Urinary tract infection, site not specified (principal); I11.9 Hypertensive heart disease without heart failure; J44.9 Chronic obstructive pulmonary disease, unspecified; N18.9 Chronic kidney disease, unspecified; F41.9 Anxiety disorder, unspecified; Z79.899 Other long term (current) drug therapy; Z79.1 Long term (current) use of non-steroidal anti-inflammatories (NSAID)
CPT/HCPCS: 36415; 71045; 80053; 81001; 83880; 84145; 84484; 85025; 87088; 93005; 96365; 99285; J0696